=== PATIENT | male | born 1970 | race Caucasian/White ===

== ENCOUNTER → 2020-08-12 08:43 | Outpatient (BNVA) | payer OTHER, SELFPAY | PROVIDERS: Visit Provider Nurse Practitioner | DX: Z76.89 Persons encountering health services in other specified circumstances (principal) ==

== ENCOUNTER 2021-01-14 05:56 | Outpatient (REF) | payer OTHER, SELFPAY ==
[2021-01-14 07:05] LABS: MANUAL DIFF FLAG NO
[2021-01-14 07:12] LABS: Basophils Percent Auto 0.3 % (0-2); Eosinophils Absolute Auto 0.4 X10*3/uL (0.0-0.4); Eosinophils Percent Auto 4.6 % (0-4); Hematocrit 45.3 % (42-52); Hemoglobin 15.4 g/dl (14.0-18.0); Imm Gran Abs Auto 0.04 X10*3/uL (0.00-0.03); Imm Gran Pct Auto 0.4 % (0.0-0.4); Lymphocytes Absolute Auto 3.2 X10*3/uL (1.2-4.9); Lymphocytes Percent Auto 34.3 % (20-40); Mean Corpuscular Hemoglobin 30.3 pg (27.0-33.0); Mean Platelet Volume 10.5 fL (9.4-12.4); Monocytes Absolute Auto 0.7 X10*3/uL (0.1-1.2); Monocytes Percent Auto 7.6 % (2-11); Neutrophils Absolute Auto 4.9 X10*3/uL (2.0-8.3); Neutrophils Percent Auto 52.8 % (45-73); Platelet Count 229 X10*3/uL (160-400); Red Blood Count 5.09 X10*6/uL (4.60-5.80); Red Cell Distribution Width 12.1 % (11.0-16.0); White Blood Count 9.2 X10*3/uL (4.8-10.8)
[2021-01-14 07:27] LABS: Alanine Aminotransferase 26 U/L (0-40); Albumin Level 4.3 g/dL (3.5-5.0); Alkaline Phosphatase 67 U/L (39-117); Anion Gap 12 (12-20); Aspartate Amino Transferase 19 U/L (5-37); Bilirubin Total 0.7 mg/dL (0.0-1.0); Blood Urea Nitrogen 13 mg/dL (9-16); Carbon Dioxide 28 mmol/L (22-29); Chloride 105 mmol/L (96-108); Cholesterol 189 mg/dL; Estimated Glomerular Filt Rate > 60; Glucose Fasting 92 mg/dL (60-99); HDL Cholesterol 34 mg/dL; LDL Cholesterol Calculated 130 mg/dl; Potassium 4.3 mmol/L (3.3-5.1); Sodium 141 mmol/L (135-145); Total Protein 6.7 g/dL (6.5-8.0); Triglycerides 129 mg/dL
[2021-01-14 07:42] LABS: Glucose Urine UA NEG (NEG); Leukocyte Esterase Urine NEG (NEG); Nitrite Urine NEG (NEG); Specific Gravity - Urine 1.025 (1.005-1.025); Urine Blood NEG (NEG); Urine Ketones 5 MG/DL (NEG); Urine Protein NEG (NEG-TRACE)
[2021-01-14 07:46] LABS: Appearance Urine CLEAR; Color Urine YELLOW
[2021-01-14 07:47] LABS: Prostate Specific Antigen Scr 0.59 ng/mL (<0.05-4.0); TSH reflex Free T4 1.79 uIU/mL (0.32-4.0)
[2021-01-14 07:50] LABS: RBC Urine 0 /HPF (0); WBC Urine 0 /HPF (0-4)
== END 2021-01-14 05:57 | disposition home or self-care (01) ==
LOC: HO.LAB 05:56
PROVIDERS: Absent Provider Nurse Practitioner; PCP Nurse Practitioner Family; Visit Provider Nurse Practitioner Family
DX: Z00.00 Encounter for general adult medical examination without abnormal findings (principal); D12.6 Benign neoplasm of colon, unspecified; Z83.71 Family history of colonic polyps; Z12.5 Encounter for screening for malignant neoplasm of prostate
CPT/HCPCS: 36415; 80053; 80061; 81001; 84153; 84443; 85025

== ENCOUNTER 2021-01-19 06:29 | Day surgery (SDC) | payer OTHER, SELFPAY ==
[2021-01-14 09:02] VITALS: BMI 39.0
--- NOTE | 2021-01-16 08:22 | HO.ANESPROP2 ---
Documented by User: Vickie Kincaid 01/16/21 08:24 HPI - Anesthesia Eval Consult details Narrative: 50yo M for Colonoscopy PMFSH Active Problems Active Problems: All Active Problems (Updated 01/14/21 @ 09:03 by Jewels Romano) Morbid obesity (Acute) GERD (gastroesophageal reflux disease) (Acute) HTN (hypertension), benign (Acute) STEPH (obstructive sleep apnea) (Acute) Family history of colonic polyps (Acute) Tubular adenoma of colon (Acute) Physical exam (Acute) Past Medical History Medical History COVID-19 vaccine administered GERD (gastroesophageal reflux disease) HTN (hypertension), benign Sleep apnea Family History Family History Mother Stroke, Onset Age: 74 Maternal Grandfather Colon cancer Father HTN (hypertension) Hypercholesteremia Surgical History Surgical History History of esophagogastroduodenoscopy (EGD) Hx of colonoscopy Hx of tonsillectomy (~2001) Hx of varicose vein ligation and stripping Social History Social History Alcohol intake: current Alcohol intake frequency: holidays/special occasions only Alcohol type: beer Patient Tobacco Use Status: Never used Tobacco Use of substances other than those prescribed or required for medical reasons: No Have you been hit, kicked, punched, or otherwise hurt by someone within the past year? If so, by whom?: No Are you DNR?: No Advance Directives Information Provided: No Recently lost weight without trying: No Eating poorly because of decreased appetite: No Nutrition Risks: No Nutritional Risk Meds Allergies Allergy/AdvReac Type Severity Reaction Status Date / Time sulfamethoxazole Allergy Intermediate skin Verified 01/19/21 06:38 [From BACTRIM DS] sensitivity trimethoprim Allergy Intermediate skin Verified 01/19/21 06:38 [From BACTRIM DS] sensitivity Home Medications Medication Instructions Recorded Confirmed Last Taken Type omeprazole 20 mg capsule,delayed 20 mg PO .every 2 days PRN cap 12/08/20 01/14/21 Unknown History release phentermine 37.5 mg capsule 37.5 mg PO DAILY 12/08/20 12/08/20 Unknown History Exam Exam Date and Time: January 16, [id number] Height,Weight and Vital Signs: Height 5 ft 8 in Weight 116.573 kg Pertinent Lab Results Pertinent Lab Results: Laboratory Tests 01/14/21 01/14/21 06:10 06:10 WBC 9.2 Hgb 15.4 Hct 45.3 Plt Count 229 Sodium 141 Potassium 4.3 Chloride 105 Carbon Dioxide 28 BUN 13 Creatinine 0.81 Assessment and Plan Assessment Anesthesia Assessment: Chart Reviewed Documented by User: Jenny Valdez 01/19/21 07:34 PMFSH Past Medical History Medical History COVID-19 vaccine administered GERD (gastroesophageal reflux disease) HTN (hypertension), benign Sleep apnea Family History Family History Mother Stroke, Onset Age: 74 Maternal Grandfather Colon cancer Father HTN (hypertension) Hypercholesteremia Surgical History Surgical History History of esophagogastroduodenoscopy (EGD) Hx of colonoscopy Hx of tonsillectomy (~2001) Hx of varicose vein ligation and stripping Social History Social History Alcohol intake: current Alcohol intake frequency: holidays/special occasions only Alcohol type: beer Patient Tobacco Use Status: Never used Tobacco Use of substances other than those prescribed or required for medical reasons: No Have you been hit, kicked, punched, or otherwise hurt by someone within the past year? If so, by whom?: No Are you DNR?: No Advance Directives Information Provided: No Recently lost weight without trying: No Eating poorly because of decreased appetite: No Nutrition Risks: No Nutritional Risk Meds Allergies Allergy/AdvReac Type Severity Reaction Status Date / Time sulfamethoxazole Allergy Intermediate skin Verified 01/19/21 06:38 [From BACTRIM DS] sensitivity trimethoprim Allergy Intermediate skin Verified 01/19/21 06:38 [From BACTRIM DS] sensitivity Home Medications Medication Instructions Recorded Confirmed Last Taken Type omeprazole 20 mg capsule,delayed 20 mg PO .every 2 days PRN cap 12/08/20 01/14/21 Unknown History release phentermine 37.5 mg capsule 37.5 mg PO DAILY 12/08/20 12/08/20 Unknown History Exam Airway Mallampati Class: II TM Dist: >3cm Loose/Missing/Broken Teeth: No Heart: RRR Lungs: CTA Assessment and Plan Assessment Anesthesia Assessment: Anesthesia Plan Discussed and Chart Reviewed Final Anesthetic Review NPO: Yes ASA Class: III Final Preanesthetic Review: Meds/Allgs Chart Reviewed, Consent Obtained/Reviewed and Anes Risks/Benef Reviewed Patient Risk: Intermediate Procedure Risk: Low Anesthetic Plan Anesthetic Plan: MAC: Disposition: Standard PACU
[2021-01-19 06:38] VITALS: BP 143/79; PULSE 74; RESP 16; TEMP 36.9; O2SAT 97
[2021-01-19] MEDS: Lactated Ringers 1,000 ML 100 ML IVCONT (06:54)
--- NOTE | 2021-01-19 07:09 | W.PM.OPN ---
Operative Note Operative Note Date of Service: 01/19/21 Narrative: Pre-op diagnosis: Colon cancer screening Post-op diagnosis: other (Colon polyps, diverticulosis, hemorrhoids) Procedure: COLONOSCOPY TO CECUM WITH SUBMUCOSAL INJECTION AND SNARE POLYPECTOMY Consent: Indications for the procedure and potential complications of bleeding, perforation, reaction to medications and missed diagnosis were discussed with the patient and informed consent was obtained. Instrument: Olympus PCF H 190 L variable stiffness pediatric colonoscope Monitoring: Vital signs and clinical assessment, intermittent blood pressure monitoring, continuous EKG monitoring, Pulse oximetry and Carbon Dioxide monitoring were done throughout the procedure. Colon withdrawl time was 30 minutes. Procedure: The patient was placed in the left lateral decubitis position and pre-procedure medications were administered. After a digital rectal examination of the ano-rectum, the video colonoscope was inserted into the rectum and advanced through the colon to the cecum. The colonoscope was slowly withdrawn in a retrograde panoramic fashion and the colon mucosa was carefully examined including a retroflexed view of the rectum. Findings and interventions are described below. Procedure Difficulty: Without difficulty Findings: Terminal Ileum: Not evaluated Cecum: Normal Ascending Colon: A 1.5 to 2 cms flat polyp raised with 5 cc of Orise solution and removed with a hot snare and scattered diverticulosis. Transverse Colon: A 2 cm sessile polyp removed with a hot snare and scattered diverticulosis Descending Colon: Scattered diverticulosis Sigmoid Colon: Three 8-10 mm sessile polyps removed with a hot snare and moderate diverticulosis Rectum: Normal Ano-rectum: Moderate internal hemorrhoids Colon preparation: Good after some irrigation Impression and Post Procedure Diagnosis: Colonoscopy Findings: Five medium sized polyps removed Moderate diverticulosis seen in the entire colon Moderate hemorrhoids on retroflexed exam. Plan: Await pathology results Patient has an appointment on 02/02/21 in the [facility] with Jennifer Briggs NP. Repeat Colonoscopy interval based on path results - in 2-3 years if polyps are adenomatous and due to a history of adenomatous colon polyps. Above findings were reviewed with the patient and colon polyps and diverticulosis handouts were given in the discharge area Surgeon: Mitchel Ray MD Anesthesia: MAC (Maria E Grande CRNA) Was an Telephone Diaphragm Assembler used for this Procedure?: Yes Telephone Diaphragm Assembler: Daniel Barrow Estimated blood loss (mL): 0 Pathology: other (A- HEPATIC FLECTURE POLYP 0- RISE USED B- TRANSVERSE COLON POLYP C- SIGMOID POLYPS) Condition: stable Disposition: PACU
--- NOTE | 2021-01-19 07:09 | MHC.SHP ---
Pre-Procedural Eval Section A The patient is an INPATIENT: No The History & Physical has been completed within 30 days and I have reviewed it.: No Section B Chief Complaint: Hx of tubular adenoma Details of Present Illness: Colon cancer screening, history of colon polyps Relevant Family History (Specify if Yes): Yes Relevant Social History: None Present Medications: see Short Stay Collaborative assessment Medical History: Significant History (Morbid obesity STEPH Family history of colon polyps Elevated blood pressure. Obesity. Gastroesophageal reflux disease (GERD) Upper & Lower scoping 2017 [facility] - 5 year f/u. History of tubular adenoma) History of Previous Operations: Relevant previous surgery/procedure and date(s) (Hx of colonoscopy Hx of tonsillectomy (~2001)) Allergies: Allergies Allergy/AdvReac Type Severity Reaction Status Date / Time sulfamethoxazole Allergy Intermediate skin Verified 01/19/21 06:38 [From BACTRIM DS] sensitivity trimethoprim Allergy Intermediate skin Verified 01/19/21 06:38 [From BACTRIM DS] sensitivity Review of Systems Sugical H&P ROS: Negative: Constitution, Cardiovascular and Gastrointestinal and Yes, Specify: Respiratory (STEPH) Exam Surgical H&P Exam: Normal: Heart, Normal: Lungs, Normal: Extremities and Normal: Abdomen Plan Diagnosis/Plan: Unchanged I have reviewed the history and physical and performed a pertinent physical examination on my patient. No changes have occurred unless specified.
[2021-01-19 08:25] VITALS: BP 126/82; PULSE 76; RESP 12; TEMP 36.3; O2SAT 99
[2021-01-19 08:41] VITALS: BP 135/78; PULSE 69; RESP 16; TEMP 36.3; O2SAT 96
== END 2021-01-19 09:00 | disposition home or self-care (01) ==
PROVIDERS: PCP Nurse Practitioner Family; Visit Provider Internal Medicine Gastroenterology
PROC: 0DJD8ZZ Inspection of Lower Intestinal Tract, Via Natural or Artificial Opening Endoscopic (ICD-10-PCS; CPT 45378; principal; 2021-01-19 07:30)
DX: Z12.11 Encounter for screening for malignant neoplasm of colon (principal); Z86.010 Personal history of colon polyps; D12.3 Benign neoplasm of transverse colon; K63.5 Polyp of colon; K57.30 Diverticulosis of large intestine without perforation or abscess without bleeding; K64.8 Other hemorrhoids; K21.9 Gastro-esophageal reflux disease without esophagitis; G47.33 Obstructive sleep apnea (adult) (pediatric); Z99.89 Dependence on other enabling machines and devices; Z79.899 Other long term (current) drug therapy
CPT/HCPCS: 45385; 45381; 88305; J2250

== ENCOUNTER → 2021-02-02 14:59 | Outpatient (BNVA) | payer OTHER, SELFPAY | PROVIDERS: PCP Nurse Practitioner Family; Visit Provider Nurse Practitioner ==

== ENCOUNTER 2022-01-20 08:15 | Outpatient (REF) | payer OTHER, SELFPAY ==
--- NOTE | ~2022-01-20 | XR_ITS ---
EXAMINATION: XR KNEE, BILATERAL AP STANDING XR KNEE, LEFT CLINICAL INFORMATION: Knee pain. COMPARISON: None TECHNIQUE: AP bilateral knee standing 1 view. Left knee 2 views. FINDINGS: AP Bilateral Knee: There is mild reduction in medial and lateral compartment joint space of both knees. No visible acute fracture or dislocation seen. There are numerous varicose vessels seen along the medial aspect of the knee bilaterally. Left Knee: There is loss of patellofemoral compartment joint space with mild superior patellar spurring. No loose bodies or bony erosive changes seen. The soft tissues are normal. XR/XR knee LT 2V IMPRESSION: Mild degenerative changes medial and lateral compartment of both knees without any fracture or dislocation. There is bilateral medial knee varicose vein seen. Surgical amada in the left side likely from previous intervention. Degenerative arthritic changes patellofemoral compartment with superior patellar spurring.
--- NOTE | ~2022-01-20 | XR_ITS ---
EXAMINATION: XR KNEE, BILATERAL AP STANDING XR KNEE, LEFT CLINICAL INFORMATION: Knee pain. COMPARISON: None TECHNIQUE: AP bilateral knee standing 1 view. Left knee 2 views. FINDINGS: AP Bilateral Knee: There is mild reduction in medial and lateral compartment joint space of both knees. No visible acute fracture or dislocation seen. There are numerous varicose vessels seen along the medial aspect of the knee bilaterally. Left Knee: There is loss of patellofemoral compartment joint space with mild superior patellar spurring. No loose bodies or bony erosive changes seen. The soft tissues are normal. XR/XR knee standing BI IMPRESSION: Mild degenerative changes medial and lateral compartment of both knees without any fracture or dislocation. There is bilateral medial knee varicose vein seen. Surgical amada in the left side likely from previous intervention. Degenerative arthritic changes patellofemoral compartment with superior patellar spurring.
== END 2022-01-20 08:16 | disposition home or self-care (01) ==
LOC: HO.HOSX 08:15
PROVIDERS: Visit Provider Physician Assistant
DX: M25.562 Pain in left knee (principal); M25.561 Pain in right knee
CPT/HCPCS: 20610; 73560; 73565; J1040

== ENCOUNTER 2022-05-15 07:16 | Outpatient (REF) | payer OTHER, SELFPAY ==
[2022-05-15 08:20] LABS: Alanine Aminotransferase 31 U/L (0-40); Albumin Level 4.3 g/dL (3.5-5.0); Alkaline Phosphatase 69 U/L (39-117); Anion Gap 18 (12-20); Aspartate Amino Transferase 18 U/L (5-37); Bilirubin Total 0.5 mg/dL (0.0-1.0); Blood Urea Nitrogen 14 mg/dL (9-16); Calcium 9.1 mg/dL (8.4-10.2); Carbon Dioxide 25 mmol/L (22-29); Chloride 103 mmol/L (96-108); Cholesterol 188 mg/dL; Estimated Glomerular Filt Rate > 60; Glucose Fasting 105 mg/dL (60-99); HDL Cholesterol 37 mg/dL; LDL Cholesterol Calculated 123 mg/dl; Potassium 4.6 mmol/L (3.3-5.1); Sodium 141 mmol/L (135-145); Triglycerides 140 mg/dL
[2022-05-15 08:43] LABS: Prostate Specific Antigen Scr 0.52 ng/mL (<0.05-4.0); TSH reflex Free T4 2.06 uIU/mL (0.32-4.0)
[2022-05-15 09:43] LABS: Appearance Urine Clear; Color Urine Yellow; Glucose Urine UA Negative (Negative); Leukocyte Esterase Urine Negative (Negative); Nitrite Urine Negative (Negative); Specific Gravity - Urine 1.015 (1.005-1.025); Urine Blood Negative (Negative); Urine Ketones Negative (Negative); Urine Protein Negative (Neg-Trace)
== END 2022-05-15 07:17 | disposition home or self-care (01) ==
LOC: HO.LAB 07:16
PROVIDERS: PCP Nurse Practitioner Family; Visit Provider Nurse Practitioner Family
DX: Z00.00 Encounter for general adult medical examination without abnormal findings (principal); Z12.5 Encounter for screening for malignant neoplasm of prostate
CPT/HCPCS: 36415; 80053; 80061; 81003; 84153; 84443

== ENCOUNTER → 2022-11-02 10:07 | Outpatient (BNVA) | payer OTHER, SELFPAY | PROVIDERS: PCP Nurse Practitioner Family; Visit Provider Nurse Practitioner Family | DX: Z31.89 Encounter for other procreative management (principal) ==

== ENCOUNTER → 2022-11-18 09:55 | Outpatient (REF) | payer OTHER, SELFPAY | LOC: HO.SL 09:55 | PROVIDERS: PCP Nurse Practitioner Family; Visit Provider Nurse Practitioner Family | DX: G47.33 Obstructive sleep apnea (adult) (pediatric) (principal) | CPT/HCPCS: 95806 ==

== ENCOUNTER 2023-03-15 07:45 | Day surgery (SDC) | payer OTHER, SELFPAY ==
[2023-03-10 14:14] VITALS: BMI 42.6
--- NOTE | 2023-03-15 08:17 | MHC.SHP ---
Pre-Procedural Eval Section A Date of Service: 03/15/23 The patient is an INPATIENT: No The History & Physical has been completed within 30 days and I have reviewed it.: No Section B Chief Complaint: screening, hx of colon polyps Relevant Family History (Specify if Yes): Yes Relevant Social History: None Present Medications: see Short Stay Collaborative assessment Medical History: Significant History (GERD (gastroesophageal reflux disease) HTN (hypertension), benign Sleep apnea) History of Previous Operations: Relevant previous surgery/procedure and date(s) (History of esophagogastroduodenoscopy (EGD) Hx of colonoscopy Hx of tonsillectomy (~2001) Hx of varicose vein ligation and stripping) Allergies: Allergies Allergy/AdvReac Type Severity Reaction Status Date / Time sulfamethoxazole Allergy Intermediate skin Verified 11/02/22 10:17 [From BACTRIM DS] sensitivity trimethoprim Allergy Intermediate skin Verified 11/02/22 10:17 [From BACTRIM DS] sensitivity Review of Systems Sugical H&P ROS: Negative: Constitution, Cardiovascular, Respiratory and Gastrointestinal Exam Surgical H&P Exam: Normal: Heart, Normal: Lungs, Normal: Extremities and Normal: Abdomen Plan Diagnosis/Plan: Unchanged I have reviewed the history and physical and performed a pertinent physical examination on my patient. No changes have occurred unless specified. Time Spent With Patient Time: Total time managing care of this patient today ____ minutes.
[2023-03-15 08:22] VITALS: BMI 38.0
[2023-03-15 08:24] VITALS: BMI 38.0
[2023-03-15] MEDS: Lactated Ringers 1,000 ML 100 ML IVCONT (08:47)
--- NOTE | 2023-03-15 09:42 | P.CONAN_ITS ---
[facility] Active Problems Active Problems: All Active Problems (Updated 01/20/22 @ 10:01 by Bridger Jones PA-C) Patellofemoral arthralgia of left knee (Acute) Screening PSA (prostate specific antigen) (Acute) Upper abdominal pain (Acute) Abdominal bloating (Acute) Morbid obesity (Acute) GERD (gastroesophageal reflux disease) (Acute) STEPH (obstructive sleep apnea) (Acute) Family history of colonic polyps (Acute) Tubular adenoma of colon (Acute) Physical exam (Acute) Past Medical History Medical History COVID-19 vaccine administered GERD (gastroesophageal reflux disease) HTN (hypertension), benign Sleep apnea Family History Family History Mother Stroke, Onset Age: 74 Maternal Grandfather Colon cancer Father HTN (hypertension) Hypercholesteremia Family history of problems with anesthesia: No Surgical History Surgical History History of esophagogastroduodenoscopy (EGD) Hx of colonoscopy Hx of tonsillectomy (~2001) Hx of varicose vein ligation and stripping History of Problems with Anesthesia: No Social History Social History Housing: House Alcohol intake: current Alcohol intake frequency: holidays/special occasions only Alcohol type: beer Patient Tobacco Use Status: Never used Tobacco e-Cigarette/Vaping Use: Never Used Second Hand Smoke Exposure: No Use of substances other than those prescribed or required for medical reasons: No Are you DNR?: No Advance Directives: No Advance Directives Information Provided: Yes service: No Current occupational status: employed Current occupation: [employer] Current occupational exposures/hazards: No Cognitive needs: No Hearing needs: No Vision needs: No Meds Allergies Allergy/AdvReac Type Severity Reaction Status Date / Time sulfamethoxazole Allergy Intermediate skin Verified 11/02/22 10:17 [From BACTRIM DS] sensitivity trimethoprim Allergy Intermediate skin Verified 11/02/22 10:17 [From BACTRIM DS] sensitivity Active Medications: Current Medications Lactated Ringer's (Lr) 1,000 mls @ 100 mls/hr IVCONT .Q10H CADENCE Last Admin: 03/15/23 08:47 Dose: 100 mls/hr Ondansetron HCl (Ondansetron Hcl 4 Mg/2 Ml Vial) 4 mg IVPUSH ONCE PRN PRN Reason: Nausea and Vomiting Ondansetron HCl (Ondansetron Hcl 4 Mg/2 Ml Vial) 4 mg IVPUSH ONCE PRN PRN Reason: Nausea and Vomiting Home Medications Medication Instructions Recorded Confirmed Last Taken Type berberine-herbal comb no.18 capsule 1 cap PO DAILY 12/09/21 03/15/23 Unknown History lactobacillus combination no.9 4 4,000 mmu cells PO DAILY 12/09/21 03/15/23 Unknown History billion cell capsule (Adult 50 Plus Probiotic) simethicone 180 mg capsule 180 mg PO QID PRN flatus 12/09/21 03/15/23 Unknown History vitamin B complex (B 1 tab PO DAILY 12/09/21 03/15/23 Unknown History Complex-Vitamin B12 tablet) Exam Exam Date and Time: March 15, 2023 0942 Height,Weight and Vital Signs: Height 5 ft 8 in Weight 113.398 kg Airway Mallampati Class: III TM Dist: >3cm Neck ROM: Full Heart: rrr Lungs: clear Assessment and Plan Final Anesthetic Review Family History of Problems with Anesthesia: No History of Problems with Anesthesia: No NPO: Yes Final Preanesthetic Review: No Changes in Pt Med Stat, Meds/Allgs Chart Revi ewed, Consent Obtained/Reviewed and Anes Risks/Benef Reviewed Patient Risk: Intermediate Procedure Risk: Low Anesthetic Plan Anesthetic Plan: MAC: Disposition: Standard PACU
--- NOTE | 2023-03-15 09:48 | W.PM.OPN ---
Operative Note Operative Note Date of Service: 03/15/23 Narrative: COLONOSCOPY TILL CECUM WITH BIOPSIES AND SNARE POLYPECTOMY Pre-op diagnosis: Colon cancer screening, history of colon polyps Post-op diagnosis:? Colon polyps, diverticulosis, hemorrhoids Endoscopist:? Mitchel Ray MD Anesthesia:?MAC Consent: Indications for the procedure and potential complications of bleeding, perforation, reaction to medications and missed diagnosis were discussed with the patient and informed consent was obtained. Instrument: Olympus CF H 190 L variable stiffness adult colonoscope Monitoring: Vital signs and clinical assessment, intermittent blood pressure monitoring, continuous EKG monitoring, Pulse oximetry and Carbon Dioxide monitoring were done throughout the procedure. Please see anesthesia flowsheet. Colon withdrawl time was 18 minutes. Procedure: The patient was placed in the left lateral decubitis position and pre-procedure medications were administered. After a digital rectal examination of the ano-rectum, the video colonoscope was inserted into the rectum and advanced through the colon to the cecum. The colonoscope was slowly withdrawn in a retrograde panoramic fashion and the colon mucosa was carefully examined including a retroflexed view of the rectum. Findings and interventions are described below. Procedure Difficulty: Without difficulty Findings: Terminal Ileum: Not evaluated Cecum: Normal Ascending Colon: Moderate diverticulosis throughout the colon Transverse Colon: A 10-12 mm sessile polyp - removed with a hot snare. Moderate diverticulosis throughout the colon Descending Colon: Moderate diverticulosis throughout the colon Sigmoid Colon: A 12 - 15 mm sessile polyp - removed with a hot snare. A 3-4 mm diminutive appearing polyp - removed with a cold biopsy. Moderate diverticulosis, left > right Rectum: A 5-6 mm sessile polyp - removed with a cold biopsy Ano-rectum: Moderate internal hemorrhoids Colon preparation: Good Impression and Post Procedure Diagnosis: Colonoscopy Findings: Two small and two medium sized polyps removed Moderate diverticulosis seen in the entire colon Moderate hemorrhoids on retroflexed exam. Plan: Await pathology results Patient has an appointment on 03/29/23 in the GI Clinic with Jennifer Briggs NP. Repeat Colonoscopy interval based on path results - in 3-5 years if polyps are adenomatous and 10 years if polyps are hyperplastic. Above findings were reviewed with the patient and colon polyps and diverticulosis handouts were given in the discharge area
[2023-03-15 10:31] VITALS: BP 140/79; PULSE 71; RESP 16; TEMP 37.1; O2SAT 96
[2023-03-15 10:52] VITALS: BP 151/78; PULSE 69; RESP 18; TEMP 36.1; O2SAT 97
== END 2023-03-15 11:29 | disposition home or self-care (01) ==
PROVIDERS: PCP Internal Medicine; Visit Provider Internal Medicine Gastroenterology
PROC: 0DJD8ZZ Inspection of Lower Intestinal Tract, Via Natural or Artificial Opening Endoscopic (ICD-10-PCS; CPT 45378; principal; 2023-03-15 09:30)
DX: Z12.11 Encounter for screening for malignant neoplasm of colon (principal); Z86.010 Personal history of colon polyps; Z83.71 Family history of colonic polyps; K63.5 Polyp of colon; K62.1 Rectal polyp; K57.30 Diverticulosis of large intestine without perforation or abscess without bleeding; K64.8 Other hemorrhoids; K21.9 Gastro-esophageal reflux disease without esophagitis; I10 Essential (primary) hypertension; G47.33 Obstructive sleep apnea (adult) (pediatric); E66.01 Morbid (severe) obesity due to excess calories; Z79.899 Other long term (current) drug therapy; Z99.89 Dependence on other enabling machines and devices; Z88.2 Allergy status to sulfonamides
CPT/HCPCS: 45385; 45380; 88305

== ENCOUNTER → 2023-03-15 07:45 | Outpatient (BNV) | payer OTHER, SELFPAY | PROVIDERS: PCP Internal Medicine; Visit Provider Internal Medicine Gastroenterology | DX: Z12.11 Encounter for screening for malignant neoplasm of colon (principal); Z86.010 Personal history of colon polyps; K57.30 Diverticulosis of large intestine without perforation or abscess without bleeding; K64.8 Other hemorrhoids; D12.3 Benign neoplasm of transverse colon; D12.5 Benign neoplasm of sigmoid colon; D12.8 Benign neoplasm of rectum | CPT/HCPCS: 45380; 45385 ==

== ENCOUNTER 2023-03-22 05:58 | Outpatient (REF) | payer OTHER, SELFPAY ==
[2023-03-22 06:24] LABS: MANUAL DIFF FLAG NO
[2023-03-22 06:32] LABS: Basophils Percent Auto 0.5 % (0-2); Eosinophils Absolute Auto 0.3 X10*3/uL (0.0-0.4); Eosinophils Percent Auto 3.7 % (0-4); Eosinophils Percent Auto 3.8 % (0-4); Hematocrit 48.1 % (42.0-52.0); Hematocrit 48.3 % (42.0-52.0); Hemoglobin 16.5 g/dl (14.0-18.0); Hemoglobin 16.7 g/dl (14.0-18.0); Imm Gran Abs Auto 0.02 X10*3/uL (0.00-0.03); Imm Gran Pct Auto 0.2 % (0.0-0.4); Lymphocytes Absolute Auto 2.4 X10*3/uL (1.2-4.9); Lymphocytes Absolute Auto 2.6 X10*3/uL (1.2-4.9); Lymphocytes Percent Auto 29.2 % (20-40); Mean Corpuscular HGB Conc 34.3 g/dl (31.0-36.0); Mean Corpuscular HGB Conc 34.6 g/dl (31.0-36.0); Mean Corpuscular Hemoglobin 30.1 pg (27.0-33.0); Mean Corpuscular Hemoglobin 30.3 pg (27.0-33.0); Mean Corpuscular Volume 88.4 fL (80.0-98.0); Mean Platelet Volume 9.9 fL (9.4-12.4); Monocytes Absolute Auto 0.5 X10*3/uL (0.1-1.2); Monocytes Absolute Auto 0.6 X10*3/uL (0.1-1.2); Monocytes Percent Auto 6.2 % (2-11); Monocytes Percent Auto 6.8 % (2-11); Neutrophils Absolute Auto 5.3 x10*3/uL (2.0-8.3); Neutrophils Percent Auto 60.1 % (45-73); Neutrophils Percent Auto 60.8 % (45-73); Platelet Count 235 X10*3/uL (160-400); Red Blood Count 5.44 X10*6/uL (4.60-5.80); Red Blood Count 5.55 X10*6/uL (4.60-5.80); Red Cell Distribution Width 12.3 % (11.0-16.0); White Blood Count 8.7 X10*3/uL (4.8-10.8); White Blood Count 8.8 X10*3/uL (4.8-10.8)
[2023-03-22 06:45] LABS: Alanine Aminotransferase 26 U/L (0-40); Albumin Level 4.4 g/dL (3.5-5.0); Alkaline Phosphatase 68 U/L (39-117); Anion Gap 12 (12-20); Aspartate Amino Transferase 17 U/L (5-37); Bilirubin Total 0.6 mg/dL (0.0-1.0); Blood Urea Nitrogen 10 mg/dL (9-16); Calcium 9.7 mg/dL (8.4-10.2); Carbon Dioxide 27 mmol/L (22-29); Chloride 105 mmol/L (96-108); Cholesterol 188 mg/dL; Estimated Glomerular Filt Rate > 60; Glucose Random 102 mg/dL (60-115); HDL Cholesterol 36 mg/dL; Iron 162 mcg/dL (45-160); LDL Cholesterol Calculated 123 mg/dl; Percent Iron Saturation 63 % (15-50); Potassium 4.3 mmol/L (3.3-5.1); Sodium 140 mmol/L (135-145); Total Iron Binding Capacity 256 mcg/dL (228-428); Total Protein 7.4 g/dL (6.5-8.0); Triglycerides 148 mg/dL; Unsaturated Iron Binding 94 ug/dL
[2023-03-22 06:47] LABS: Alanine Aminotransferase 27 U/L (0-40); Albumin Level 4.4 g/dL (3.5-5.0); Alkaline Phosphatase 69 U/L (39-117); Anion Gap 13 (12-20); Aspartate Amino Transferase 18 U/L (5-37); Bilirubin Total 0.5 mg/dL (0.0-1.0); Blood Urea Nitrogen 10 mg/dL (9-16); Calcium 9.8 mg/dL (8.4-10.2); Carbon Dioxide 27 mmol/L (22-29); Chloride 104 mmol/L (96-108); Cholesterol 191 mg/dL; Estimated Glomerular Filt Rate > 60; Glucose Fasting 102 mg/dL (60-99); HDL Cholesterol 37 mg/dL; LDL Cholesterol Calculated 125 mg/dl; Potassium 4.4 mmol/L (3.3-5.1); Sodium 140 mmol/L (135-145); Total Protein 7.5 g/dL (6.5-8.0); Triglycerides 149 mg/dL
[2023-03-22 07:03] LABS: TSH reflex Free T4 2.35 uIU/mL (0.32-4.0)
[2023-03-22 07:05] LABS: Ferritin 911 ng/mL (20-250); TSH reflex Free T4 2.32 uIU/mL (0.32-4.0)
[2023-03-22 07:09] LABS: Prostate Specific Antigen 0.96 ng/mL (<0.05-4.0)
[2023-03-22 07:15] LABS: Vitamin B12 1335 pg/mL (200-900)
[2023-03-22 07:26] LABS: Insulin 22 uU/mL (2-29)
[2023-03-22 07:44] LABS: Appearance Urine Clear; Color Urine Yellow; Glucose Urine UA Negative (Negative); Leukocyte Esterase Urine Negative (Negative); Nitrite Urine Negative (Negative); PH 6.5 (5.0-9.0); Urine Blood Negative (Negative); Urine Ketones Negative (Negative); Urine Protein Negative (Neg-Trace)
[2023-03-24 00:29] LABS: Follicle Stimulating Hormone 5.6 mIU/mL (1.6-8.0); Lutenizing Hormone 2.6 mIU/mL (1.5-9.3); Triiodothyronine T3 Free 3.6 pg/mL (2.3-4.2)
[2023-03-24 01:04] LABS: DHEA Sulfate 142 mcg/dL (32-279)
[2023-03-24 17:24] LABS: Homocysteine 9.1 umol/L (<11.4)
[2023-03-27 05:43] LABS: Dihydrotestosterone 31 ng/dL (12-65)
[2023-03-27 10:54] LABS: Testosterone, Free 48.3 pg/mL (35.0-155.0); Testosterone, Total 383 ng/dL (250-1100)
[2023-03-28 13:44] LABS: Triiodothyronine T3 Reverse 16 ng/dL (8-25)
[2023-03-28 17:28] LABS: Progesterone <0.1 ng/mL (< OR = 0.2)
[2023-03-29 04:58] LABS: Lipoprotein A 31 nmol/L (<75)
[2023-03-29 11:39] LABS: Apolipoprotein A1 146 mg/dL (>=115); Apolipoprotein B 112 mg/dL (<90)
[2023-04-01 21:38] LABS: Estradiol Ultra Sensitive 28 pg/mL (< OR = 29)
== END 2023-03-22 05:59 | disposition home or self-care (01) ==
LOC: HO.LAB 05:58
PROVIDERS: Absent Provider Nurse Practitioner Adult Health; PCP Nurse Practitioner Family; Visit Provider Nurse Practitioner Family
DX: E66.01 Morbid (severe) obesity due to excess calories (principal); E29.1 Testicular hypofunction; E53.9 Vitamin B deficiency, unspecified; Z12.5 Encounter for screening for malignant neoplasm of prostate; E55.9 Vitamin D deficiency, unspecified; R53.83 Other fatigue; D64.9 Anemia, unspecified; E78.5 Hyperlipidemia, unspecified
CPT/HCPCS: 36415; 80053; 80061; 81003; 82172; 82306; 82607; 82627; 82642; 82670; 82728; 83001; 83002; 83090; 83525; 83540; 83695; 84144; 84153; 84402; 84403; 84443; 84481; 84482; 85025

== ENCOUNTER 2023-03-29 10:34 | Outpatient (AMB) | payer OTHER, SELFPAY ==
[2023-03-29 10:41] VITALS: BP 160/89; PULSE 77; BMI 38.3
--- NOTE | 2023-03-29 10:41 | A.OFFVIS_ITS ---
Intake Vital Signs 03/29/23 10:41 03/29/23 10:54 Height 5 ft 8 in Weight 251 lb 12.286 oz BMI 38.3 BP 160/89 H 144/84 H Blood Pressure Location Lt brachial Lt brachial Position Sitting Sitting Pulse 77 Comment Manual BP check Intake Visit Reasons: S/p colon Cory Intake Note: Patient presents to in office visit today in follow up of colonoscopy . CC: Patient denies having any GI symptoms today. 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 On phentermine for weight loss and see the weight loss doctor but says it is very expensive it caused him? 200 dollars per visit (2) GERD (gastroesophageal reflux disease): ?Code(s): K21.9 - Gastro-esophageal reflux disease without esophagitis ?Plan - ALCIDES Regalado-C: Tolerated procedure well, but having ongoing bloating (before procedure). Worse with bread adn pizza (?fat). Unsure and will think about fat content of meats - he eats a lot of meat and had trouble with brisket. Mother GB disease , we discussed an ultrasound be wants to wait on that because he is very busy at work.? Because he feels he may have some sort of gluten sensitivity I will order celiac testing but I did explain to him that not everyone is allergic to gluten so was simply developed a little pancreatic insufficiency as we age in do not produce the enzymes to digest it well which can cause gas and bloating.? This will help us she is out the cause.? Also it could be fatty or cuts of me that her bothering him which could relate to gallbladder disease. In the meantime I will give him some simethicone to help with past the gas pattern encourage him to take it with each meal. He is quite agreeable to the 2-3 year follow-up for his colonoscopy screening and understands that he should never go more than 5 years without a colonoscopy so that he will not develop colon cancer.? He was educated that the flat nature of the polyps is why he needs an earlier recall because sometimes it is difficult to assess that you gotten all the material from the edges of these lesions. He is agreeable to a 3 month follow-up.? He continues on his omeprazole 20 mg once a day and I have refilled it for him. ? ? ? Medications:?Changed: ? From: omeprazole 20 mg? PO DAILY A sonam Reflux ? ? ? To: omeprazole 20 mg? PO DAILY 3 0 days 30 caps 6RF Acid Reflux ? ? (3) Tubular adenoma of colon: ?Comment: scope 2 ta'S sesslie repeat 2-3 years ?Code(s): D12.6 - Benign neoplasm of colon, unspecified (4) Family history of colonic polyps: ?Code(s): Z83.71 - Family history of colonic polyps (5) Upper abdominal pain: ?Code(s): R10.10 - Upper abdominal pain, unspecified ? ? ? Orders:?Orders: ? Gliadin Ab Panel 02/02/21 ? ? ? Transglutaminase I gA 02/02/21 ? ? ? Transglutaminase A b IgG 02/02/21 ? ? (6) Abdominal bloating: ?Code(s): R14.0 - Abdominal distension (gaseous) ? ? ? Orders:?Orders: ? Gliadin Ab Panel 02/02/21 ? ? ? Transglutaminase I gA 02/02/21 ? ? ? Transglutaminase A b IgG 02/02/21 ? ? LABS: not obtained COLONOSCOPY 03/15/23 Findings: Terminal Ileum: Not evaluated Cecum:? Normal Ascending Colon:? Moderate diverticulosis throughout the colon Transverse Colon:? A 10-12 mm sessile polyp - removed with a hot snare. Moderate diverticulosis throughout the colon Descending Colon:? Moderate diverticulosis throughout the colon Sigmoid Colon:? A 12 - 15 mm sessile polyp - removed with a hot snare. A 3-4 mm diminutive appearing polyp - removed with a cold biopsy. Moderate diverticulosis, left > right Rectum:? A 5-6 mm sessile polyp - removed with a cold biopsy Ano-rectum:? Moderate internal hemorrhoids Colon preparation:? Good? Impression and Post Procedure Diagnosis: Colonoscopy Findings: Two small and two medium sized polyps removed Moderate diverticulosis seen in the entire colon Moderate hemorrhoids on retroflexed exam. Plan: Await pathology results Patient has an appointment on 03/29/23 in the GI Clinic with Jennifer Briggs NP. Repeat Colonoscopy interval based on path results - in 3-5 years if polyps are adenomatous and 10 years if polyps are hyperplastic. Received: 03/15/23 Diagnosis A. Colon, sigmoid, polypectomies (2): Hyperplastic mucosal polyps. B. Colon, transverse, polypectomy: Colonic mucosa with prominent lymphoid aggregate. C. Rectum, polypectomy: Hyperplastic mucosal polyp. TODAY'S VISIT The only problem he was having was his sciatia, and laying on his side for the procedure did not help! he is having burning in his legs now. The procedure needs to be repeated in 5 years due to his history of tubular adenoma and family history of colon polyps. The procedure was well tolerated. The results were explained and the patient is agreeable to the follow-up interval as stated. The bowel pattern has returned to normal. Education was provided to tell any 1st degree relatives about their findings to be sure that they are screened by age 45. Educated that they will be put on a recall list when it is time for their repeat scope but should they move out of state or away from the hospital they will need to remember along with their primary to repeat the procedure in a timely fashion to avoid any adverse complications. [facility] Medical History (Updated 03/29/23 @ 10:51 by VERONICA Regalado) COVID-19 vaccine administered GERD (gastroesophageal reflux disease) HTN (hypertension), benign Sleep apnea Tubular adenoma of colon Surgical History History of esophagogastroduodenoscopy (EGD) Hx of colonoscopy Hx of tonsillectomy (~2001) Hx of varicose vein ligation and stripping Family History Mother Stroke, Onset Age: 74 Maternal Grandfather Colon cancer Father HTN (hypertension) Hypercholesteremia Social History Housing: House Alcohol intake: current Alcohol intake frequency: holidays/special occasions only Alcohol type: beer Patient Tobacco Use Status: Never used Tobacco e-Cigarette/Vaping Use: Never Used Second Hand Smoke Exposure: No service: No Current occupational status: employed Current occupation: [employer] Current occupational exposures/hazards: No Cognitive needs: No Hearing needs: No Vision needs: No Review of Systems Const Denies fatigue, Denies fever(s), Denies night sweats, Denies poor appetite and Denies weight loss ENT Reports Normal hearing present, Denies dental pain, Denies dysphagia, Denies hearing loss, Denies mouth pain, Denies odynophagia, Denies throat swelling, Denies tongue swelling and Reports other (Dentition adequate) Card Reports no additional complaints Resp Reports no additional complaints GI Denies abdominal pain, Denies melena, Denies bloating, Denies hematochezia, Denies constipation, Denies GI cramping, Denies dysphagia, Denies excessive flatus, Denies early satiety, Denies heartburn, Denies diarrhea, Denies nausea, Denies odynophagia, Denies vomiting and Denies hematemesis Musc Reports back pain and Reports radiating pain into limb Skin/Breast Denies pruritus, Denies lesions, Denies rash and Denies jaundice Neuro Reports Normal hearing present and Denies Abnormal speech present Endo Denies fatigue Aller/Immun Denies throat swelling and Denies tongue swelling Physical Exam Vital Signs: Last Vital Signs Pulse 77 03/29/23 10:41 BP 144/84 H 03/29/23 10:54 BMI result Body Mass Index 38.3 Const General: cooperative, no acute distress, well developed and well groomed Nutritional Appearance: well nourished and obese Orientation/consciousness: oriented to person, oriented to place and oriented to time Limitations: No language barrier HEENT Head: Yes normocephalic and Yes atraumatic Eyes General: appearance normal, both eyes and all related structures Pupils: Equal, round and reactive pupils present Neck Neck: Yes normal visual inspection and Yes no lymphadenopathy Thyroid: Thyroid normal Resp Effort & Inspection: normal respiratory effort and able to speak in complete sentences Auscultation: clear to auscultation bilaterally Cardio Rate: regular rate Rhythm: regular rhythm Heart sounds: Normal, physiologic split S2 sound present Peripheral pulses: radial pulses present and posterior tibial pulses present GI Inspection: No distended, No Abdominal panniculus present and Yes obesity Palpation (GI): Soft to palpation, nontender, no guarding, not rigid and No hepatosplenomegaly present Percussion: Yes normal to percussion Auscultation: normal bowel sounds Rectal Exam - Male: Yes deferred Skin General skin exam: no rashes or lesions noted, turgor normal, skin not dry, no jaundice, No spider nevi and no striae Rashes: no rashes Nails: normal Neuro General: oriented to person, oriented to place and oriented to time Cranial nerves: Yes Equal, round and reactive pupils present and Yes Normal hearing present Speech: No Abnormal speech present Extrem General: Yes normal to inspection, No clubbing, No cyanosis and No edema Psych Appearance: grossly normal and well kempt Mental Status: mental status grossly normal Speech and movement: Normal speech and movement present Affect: normal affect Attitude: cooperative Thought process: Normal thought process present and not confabulating Thought content: Normal thought content present Insight: Fair insight present (Psych) Judgement: Fair judgement present (Psych) Results Reviewed Results Reviewed: LABS: not obtained COLONOSCOPY 03/15/23 Findings: Terminal Ileum: Not evaluated Cecum:? Normal Ascending Colon:? Moderate diverticulosis throughout the colon Transverse Colon:? A 10-12 mm sessile polyp - removed with a hot snare. Moderate diverticulosis throughout the colon Descending Colon:? Moderate diverticulosis throughout the colon Sigmoid Colon:? A 12 - 15 mm sessile polyp - removed with a hot snare. A 3-4 mm diminutive appearing polyp - removed with a cold biopsy. Moderate diverticulosis, left > right Rectum:? A 5-6 mm sessile polyp - removed with a cold biopsy Ano-rectum:? Moderate internal hemorrhoids Colon preparation:? Good? Impression and Post Procedure Diagnosis: Colonoscopy Findings: Two small and two medium sized polyps removed Moderate diverticulosis seen in the entire colon Moderate hemorrhoids on retroflexed exam. Plan: Await pathology results Patient has an appointment on 03/29/23 in the GI Clinic with Jennifer Briggs NP. Repeat Colonoscopy interval based on path results - in 3-5 years if polyps are adenomatous and 10 years if polyps are hyperplastic. Received: 03/15/23 Diagnosis A. Colon, sigmoid, polypectomies (2): Hyperplastic mucosal polyps. B. Colon, transverse, polypectomy: Colonic mucosa with prominent lymphoid aggregate. C. Rectum, polypectomy: Hyperplastic mucosal polyp. Assessment & Plan Assessment & Plan (1) Tubular adenoma of colon: Comment: 03/2023= HYPERPLASTIC POLYPS ONLY REPEAT IN 5 YEARS; scope 2 ta'S sesslie repeat 2-3 years Code(s): D12.6 - Benign neoplasm of colon, unspecified Plan: The only problem he was having was his sciatia, and laying on his side for the procedure did not help! he is having burning in his legs now. The procedure needs to be repeated in 5 years due to his history of tubular adenoma and family history of colon polyps. The procedure was well tolerated. The results were explained and the patient is agreeable to the follow-up interval as stated. The bowel pattern has returned to normal. Education was provided to tell any 1st degree relatives about their findings to be sure that they are screened by age 45. Educated that they will be put on a recall list when it is time for their repeat scope but should they move out of state or away from the hospital they will need to remember along with their primary to repeat the procedure in a timely fashion to avoid any adverse complications. (2) Family history of colonic polyps: Code(s): Z83.71 - Family history of colonic polyps Coding Level of Care Code Est Pt Level 3 (83803) Diagnoses Tubular adenoma of colon D12.6 Family history of colonic polyps Z83.71
[2023-03-29 10:54] VITALS: BP 144/84
== END 2023-03-29 11:05 | disposition home or self-care (01) ==
PROVIDERS: PCP Nurse Practitioner Family; Visit Provider Nurse Practitioner
DX: D12.6 Benign neoplasm of colon, unspecified (principal); Z83.71 Family history of colonic polyps
CPT/HCPCS: 99213

== ENCOUNTER → 2023-03-29 10:34 | Outpatient (BNVA) | payer OTHER, SELFPAY | PROVIDERS: PCP Nurse Practitioner Family; Visit Provider Nurse Practitioner ==

== ENCOUNTER 2023-09-05 06:04 | Outpatient (REF) | payer OTHER, SELFPAY ==
[2023-09-05 06:33] LABS: MANUAL DIFF FLAG NO
[2023-09-05 07:06] LABS: Basophils Absolute Auto 0.1 X10*3/uL (0.0-0.2); Basophils Percent Auto 0.5 % (0-2); Eosinophils Absolute Auto 0.3 X10*3/uL (0.0-0.4); Eosinophils Percent Auto 3.5 % (0-4); Hematocrit 50.4 % (42.0-52.0); Hemoglobin 17.5 g/dl (14.0-18.0); Imm Gran Abs Auto 0.04 X10*3/uL (0.00-0.03); Imm Gran Pct Auto 0.4 % (0.0-0.4); Lymphocytes Absolute Auto 2.9 X10*3/uL (1.2-4.9); Lymphocytes Percent Auto 30.2 % (20-40); Mean Corpuscular HGB Conc 34.7 g/dl (31.0-36.0); Mean Corpuscular Hemoglobin 30.6 pg (27.0-33.0); Mean Corpuscular Volume 88.1 fL (80.0-98.0); Mean Platelet Volume 10.5 fL (9.4-12.4); Monocytes Absolute Auto 0.8 X10*3/uL (0.1-1.2); Monocytes Percent Auto 8.3 % (2-11); Neutrophils Absolute Auto 5.4 x10*3/uL (2.0-8.3); Neutrophils Percent Auto 57.1 % (45-73); Platelet Count 228 X10*3/uL (160-400); Red Blood Count 5.72 X10*6/uL (4.60-5.80); Red Cell Distribution Width 11.9 % (11.0-16.0); White Blood Count 9.5 X10*3/uL (4.8-10.8)
[2023-09-05 07:30] LABS: Alanine Aminotransferase 21 U/L (0-40); Albumin Level 4.2 g/dL (3.5-5.0); Alkaline Phosphatase 59 U/L (39-117); Anion Gap 13 (12-20); Aspartate Amino Transferase 14 U/L (5-37); Bilirubin Total 0.6 mg/dL (0.0-1.0); Blood Urea Nitrogen 16 mg/dL (9-16); Calcium 8.9 mg/dL (8.4-10.2); Carbon Dioxide 25 mmol/L (22-29); Chloride 106 mmol/L (96-108); Cholesterol 199 mg/dL (<200); Estimated Glomerular Filt Rate > 60; Glucose Fasting 109 mg/dL (60-99); HDL Cholesterol 29 mg/dL (>40); Iron 141 mcg/dL (45-160); LDL Cholesterol Calculated 151 mg/dL (<100); Percent Iron Saturation 57 % (15-50); Sodium 140 mmol/L (135-145); Total Iron Binding Capacity 246 mcg/dL (228-428); Total Protein 7.1 g/dL (6.5-8.0); Triglycerides 95 mg/dL (<150); Unsaturated Iron Binding 105 ug/dL
[2023-09-05 07:38] LABS: Prostate Specific Antigen Scr 0.84 ng/mL (<0.05-4.0)
[2023-09-05 07:39] LABS: Prostate Specific Antigen 0.84 ng/mL (<0.05-4.0)
[2023-09-05 07:44] LABS: Appearance Urine Clear; Color Urine Yellow; Glucose Urine UA Negative (Negative); Leukocyte Esterase Urine Negative (Negative); Nitrite Urine Negative (Negative); PH 5.5 (5.0-9.0); Specific Gravity - Urine 1.025 (1.005-1.025); Urine Blood Negative (Negative); Urine Ketones Negative (Negative); Urine Protein Negative (Neg-Trace)
[2023-09-05 07:47] LABS: Ferritin 788 ng/mL (20-250); TSH reflex Free T4 1.92 uIU/mL (0.32-4.0)
[2023-09-06 16:44] LABS: Follicle Stimulating Hormone <0.7 mIU/mL (1.4-12.8); Lutenizing Hormone <0.2 mIU/mL (1.5-9.3)
[2023-09-09 22:53] LABS: Estradiol Ultra Sensitive 61 pg/mL (< OR = 29)
[2023-09-12 14:29] LABS: Progesterone <0.1 ng/mL (< OR = 0.2)
== END 2023-09-05 06:05 | disposition home or self-care (01) ==
LOC: HO.LAB 06:04
PROVIDERS: Absent Provider Nurse Practitioner Adult Health; PCP Nurse Practitioner Family; Visit Provider Nurse Practitioner Family
DX: Z12.5 Encounter for screening for malignant neoplasm of prostate (principal); I10 Essential (primary) hypertension; E83.119 Hemochromatosis, unspecified; R79.89 Other specified abnormal findings of blood chemistry; E53.9 Vitamin B deficiency, unspecified; R70.0 Elevated erythrocyte sedimentation rate
CPT/HCPCS: 36415; 80053; 80061; 81003; 82670; 82728; 83001; 83002; 83540; 84144; 84153; 84443; 85025

== ENCOUNTER 2023-12-21 15:17 | Outpatient (AMB) | payer OTHER, SELFPAY ==
--- NOTE | 2023-12-21 15:46 | MHC.PC.OV ---
Vital Signs 12/21/23 15:50 Height 5 ft 8 in Weight 255 lb BMI 38.8 BP 128/78 Blood Pressure Location Rt brachial Position Sitting Pulse 62 Pulse Source Pulse Oximeter Pulse Oximetry (%) 97 Oxygen Delivery Method Room Air Intake Visit Reasons: Annual PE Intake Note: Patient here for physical exam. Colon: Allergies sulfamethoxazole [From BACTRIM DS] Allergy (Intermediate, Verified 12/21/23 17:38) skin sensitivity trimethoprim [From BACTRIM DS] Allergy (Intermediate, Verified 12/21/23 17:38) skin sensitivity Medication List - Last Reconciled 12/21/23 by BETSEY Ramirez-ROCHELLE berberine-herbal comb no.18 1 cap PO DAILY cyclobenzaprine 5 mg PO TID PRN lactobacillus combination no.9 (Adult 50 Plus Probiotic) 4,000 mmu cells PO DAILY losartan 25 mg PO DAILY omeprazole 20 mg PO DAILY 30 days semaglutide 0.25 mg subcut QWEEK vitamin B complex (B Complex-Vitamin B12 tablet) 1 tab PO DAILY Tobacco use date assessed: 12/21/23 Dental Screening Dental Screen Date: 12/21/23 Did you have a dental visit in the last 12 months?: Yes Did you have a dental problem in the last 6 months where you did not have access to dental care?: No Was dental information given to patient?: Patient has dentist HPI Annual PE HPI Details Pt is here for a PE. Labs have already been ordered, encouraged pt to have these drawn. Colon screen is up to date. PSA is up to date. Denies dribbling with urination, weak stream, and frequent nocturia. PFSH Medical History COVID-19 vaccine administered GERD (gastroesophageal reflux disease) Sleep apnea Tubular adenoma of colon HTN (hypertension), benign Surgical History History of esophagogastroduodenoscopy (EGD) Hx of varicose vein ligation and stripping Hx of tonsillectomy (~2001) Hx of colonoscopy Family History Mother Stroke, Onset Age: 74 Maternal Grandfather Colon cancer Father HTN (hypertension) Hypercholesteremia Social History Housing: House Alcohol intake: current Alcohol intake frequency: holidays/special occasions only Alcohol type: beer Patient Tobacco Use Status: Never used Tobacco e-Cigarette/Vaping Use: Never Used Second Hand Smoke Exposure: No service: No Current occupational status: employed Current occupation: [employer] Current occupational exposures/hazards: No Cognitive needs: No Hearing needs: No Vision needs: No Questionnaire PHQ-9 Over the last 2 weeks, how often have you been bothered by any of the following problems? 1. Little interest or pleasure in doing things: several days 2. Feeling down, depressed, or hopeless: not at all 3. Trouble falling or staying asleep, or sleeping too much: more than half the days 4. Feeling tired or having little energy: more than half the days 5. Poor appetite or overeating: several days 6. Feeling bad about yourself - or that you are a failure or have let yourself or your family down: not at all 7. Trouble concentrating on things, such as reading the newspaper or watching television: more than half the days 8. Moving or speaking so slowly that other people could have noticed. Or the opposite - being so fidgety or restless that you have been moving around a lot more than usual: not at all 9. Thoughts that you would be better off or of hurting yourself in some way: not at all Total score: 8 Depression Screening Interpretation: Negative Depression Screening Done: Yes [id number] - PHQ-9 Billing: Yes Source: Developed by Drs. Zachary Brand, Sarah Murray, Negrito Skinner and colleagues, with an educational nicci from [facility]. Thrive Questionnaire Date Thrive assessed: 12/21/23 I am a: Patient What is your living situation today?: I have a steady place to live Within the past 12 months, did the food you bought not last and you didn't have the money to get more?: Never true Within the past 12 months, did you worry whether your food would run out before you got money to buy more?: Never true Do you have trouble paying for medicines?: No Do you have trouble getting transportation to medical appointments?: No Do you have trouble paying your heating and electricity bill?: No Do you have trouble taking care of your child, family member or friend?: No Do you have trouble with day-to-day activities such as bathing, preparing meals, shopping, managing finances, etc.?: No Are you currently unemployed and looking for a job?: No Are you interested in more education?: No Currently or been in a relationship where the following occur: I choose not to answer this question THRIVE Score: 0 MELITA-7 AMB Questionnaire MELITA-7 Date MELITA - 7 assessed: 12/09/21 Feeling nervous, anxious, or on edge: 2 = More than half the days Not being able to stop or control worryin = More than half the days Worrying too much about different things: 2 = More than half the days Trouble relaxin = Several days Being so restless that it is hard to sit still: 1 = Several days Becoming easily annoyed or irritable: 1 = Several days Feeling afraid as if something awful might happen: 0 = Not at all Total MELITA-7 score (0-4 normal; 5-9 mild; 10-14 moderate; 15-21 severe): 9 Source: Developed by Drs. Zachary Brand, Sarah Murray, Negrito Skinner and colleagues, with an educational nicci from [facility]. MELITA-7 Assessment Billing MELITA-7 Assessment Tool: MELITA-7 Assessment 10372 Review of Systems Const Denies chills and Denies fever(s) Eyes Denies blurry vision ENT Denies vertigo, Denies dizziness and Denies sore throat Card Denies chest pain at rest, Denies chest pain with activity, Denies diaphoresis, Denies dyspnea and Denies dyspnea on exertion Resp Denies cough, Denies dyspnea, Denies dyspnea on exertion and Denies wheezing GI Denies abdominal pain, Denies melena, Denies hematochezia, Denies constipation, Denies diarrhea and Denies loose stools Denies hematuria Musc Denies numbness and Denies tingling Skin/Breast Denies lesions Neuro Denies vertigo, Denies dizziness, Denies numbness and Denies tingling Psych Denies anxiety, Denies depression, Denies homicidal ideation, Denies suicidal ideation and Denies other (substance abuse) Aller/Immun Denies wheezing Physical exam (Primary Care) Vital Signs: Last Vital Signs Pulse 62 12/21/23 15:50 BP 128/78 12/21/23 15:50 Pulse Ox 97 12/21/23 15:50 Oxygen Delivery Method Room Air 12/21/23 15:50 BMI result Body Mass Index 38.8 Tobacco/Smoking Status: Tobacco use Status Tobacco use date assessed 12/21/23 12/21/23 15:53 Patient Tobacco Use Status Never used Tobacco 12/21/23 15:47 Tobacco use type 12/21/23 15:53 e-Cigarette/Vaping Use Never Used 12/21/23 15:47 PHQ-9: PHQ-9 Score PHQ-9: Total score 8 12/21/23 16:14 Depression Screening Interpretation: Negative Thrive Assessment: Date of Thrive Assessment Date Thrive assessed 12/21/23 12/21/23 16:14 Currently or been in a relationship where the following occur: I choose not to answer this question Const General: cooperative Nutritional Appearance: obese Orientation/consciousness: patient oriented x3 HENMT Head: Yes normal to inspection, Yes normocephalic and Yes atraumatic Ears: TM's normal bilaterally Eyes General: appearance normal, both eyes and all related structures Alignment and Position: alignment normal and position normal Neck Neck: Yes normal visual inspection and Yes no lymphadenopathy Thyroid: Thyroid normal Resp Effort & Inspection: normal respiratory effort Auscultation: clear to auscultation bilaterally Cardio Rate: regular rate Rhythm: regular rhythm Heart sounds: S1 normal heart sound present, S2 normal heart sound present and no murmurs GI Palpation (GI): Soft to palpation and nontender Auscultation: normal bowel sounds Male General Exam: Yes normal external exam Penis: normal penis Scrotum: scrotum normal, testes descended bilaterally and no inguinal hernias Testes: no testicular mass Skin Rashes: no rashes Neuro General: patient oriented x3, moves all extremities, no focal motor deficits and deep tendon reflexes 2+ bilaterally Romberg Test: Negative Extrem Other: varicose veins noted to medial aspect of BLE (right>left), no tenderness with palpation, trace edema bilat Psych Appearance: grossly normal Mental Status: mental status grossly normal Speech and movement: Normal speech and movement present Affect: normal affect Attitude: cooperative Thought process: Normal thought process present Thought content: Normal thought content present Insight: Good insight present (Psych) Judgement: Good judgement present (Psych) Assessment and Plan Assessment & Plan (1) Physical exam: Code(s): Z00.00 - Encounter for general adult medical examination without abnormal findings Plan The patient agreed to the use of a medical office assistant instructor for this encounter. Scribed for SANDHYA Mendez by Carlene Ware medical office assistant instructor, on 12/21/2023 at 16:20 EST. Coding Level of Care Code Est Pt Prev Care 40-64y(77516) Diagnoses Physical exam Z00.00 Additional Codes MELITA-7 Assessment Billing - MELITA-7 Assessment Tool: MELITA-7 Assessment 84235 ([id number])
[2023-12-21 15:50] VITALS: BP 128/78; PULSE 62; O2SAT 97; BMI 38.8
== END 2023-12-21 16:32 | disposition home or self-care (01) ==
PROVIDERS: PCP Nurse Practitioner Family; Visit Provider Nurse Practitioner Family
DX: Z00.00 Encounter for general adult medical examination without abnormal findings (principal)
CPT/HCPCS: 99396

== ENCOUNTER 2024-03-22 09:34 | Outpatient (AMB) | payer OTHER, SELFPAY ==
--- NOTE | 2024-03-22 09:37 | A.OFFVIS_ITS ---
Vital Signs 03/22/24 09:44 Height 5 ft 8 in Weight 255 lb BMI 38.8 Intake Visit Reasons: Inj-left knee injection-last injection 01/20/22 Intake Note: Patient reports bilateral knee pain, states his right knee pain presented in December after walking 4 miles in [place]. His pain is located at the medial aspect of both knees. His last injection to the left knee provided him with relief for about 2 years. He is requesting to discuss bilateral knee injections. Find some relief with advil. Allergies sulfamethoxazole [From BACTRIM DS] Allergy (Intermediate, Verified 03/22/24 09:46) skin sensitivity trimethoprim [From BACTRIM DS] Allergy (Intermediate, Verified 03/22/24 09:46) skin sensitivity HPI HPI Inj-left knee injection-last injection 01/20/22: Details: 53-year-old male who returns to the office today for a follow-up of left knee pain. He reports his pain started after walking 4 mile in [place] in December. He currently states he has pain at the medial aspect of his bilateral knees. He finds some relief with Advil. He had his last left knee injection on 01/20/22 which provided him relief for about 2 years. He would like to have bilateral knee injections today. [facility] Medical History COVID-19 vaccine administered GERD (gastroesophageal reflux disease) Sleep apnea Tubular adenoma of colon HTN (hypertension), benign Surgical History History of esophagogastroduodenoscopy (EGD) Hx of varicose vein ligation and stripping Hx of tonsillectomy (~2001) Hx of colonoscopy Family History Mother Stroke, Onset Age: 74 Maternal Grandfather Colon cancer Father HTN (hypertension) Hypercholesteremia Social History Housing: House Alcohol intake: current Alcohol intake frequency: holidays/special occasions only Alcohol type: beer Patient Tobacco Use Status: Never used Tobacco e-Cigarette/Vaping Use: Never Used Second Hand Smoke Exposure: No service: No Current occupational status: employed Current occupation: [employer] Current occupational exposures/hazards: No Cognitive needs: No Hearing needs: No Vision needs: No Review of Systems Const All systems reviewed & are unremarkable except as noted in HPI and below Physical Exam Vital Signs: BMI result Body Mass Index 38.8 Extrem Other: Bilateral knee: Skin intact, no erythema or joint effusion. Tenderness along the medial joint line. Full ROM with crepitus. Negative Manuel?s. No ligamentous laxity. NVI. ? Office Procedures Joint Injection/Aspiration Joint Injection/Aspiration Primary Site: right knee Secondary Site: left knee Prep: site was prepped using aseptic technique, ethochloride spray was applied and injection warnings given Injected: 80 mg of, DepoMedrol, with 8 mL of, 1% plain lidocaine and in the joint Approach Used: anterolateral Procedure: The patient tolerated the procedure well and there was some relief with the local anesthesia Coding 68619 - Glenohumeral/Tronchanteric Bursa/Intraarticular Procedure code (CPT) selection complete Assessment & Plan Assessment & Plan (1) Osteoarthritis of knees, bilateral: Code(s): M17.0 - Bilateral primary osteoarthritis of knee Category: Medical Plan We discussed options today, which include steroid injection. The patient did consent to move forward with the bilateral knee injection, which was tolerated well. I recommended rest, ice, and elevation and OTC anti-inflammatories as needed for discomfort. If symptoms persist or worsen over the next 6-8 weeks, patient will contact the office, otherwise follow-up as needed. Patient Instructions: Scribed for Bridger Jones PA-C, by Marino Portillo registered medical transcriptionist, on 03/22/2024 at 9:45 AM EST.? I, Bridger Jones PA-C, have personally reviewed and agree with the information entered by the scribe. Coding Level of Care Code Est Pt Level 3 (11313) Diagnoses Osteoarthritis of knees, bilateral M17.0 CPT Codes Coding - Joint 7: 42835 - Glenohumeral/Tronchanteric Bursa/Intraarticular ([id number])
[2024-03-22 09:44] VITALS: BMI 38.8
== END 2024-03-22 10:10 | disposition home or self-care (01) ==
PROVIDERS: PCP Nurse Practitioner Family; Visit Provider Physician Assistant
DX: M17.0 Bilateral primary osteoarthritis of knee (principal)
CPT/HCPCS: 20610; 99213

== ENCOUNTER → 2024-03-22 09:34 | Outpatient (BNVA) | payer OTHER, SELFPAY | PROVIDERS: PCP Nurse Practitioner Family; Visit Provider Physician Assistant | DX: M17.0 Bilateral primary osteoarthritis of knee (principal) | CPT/HCPCS: 20610; J1010 ==

== ENCOUNTER 2024-04-27 05:55 | Outpatient (REF) | payer OTHER, SELFPAY ==
[2024-04-27 06:21] LABS: MANUAL DIFF FLAG NO
[2024-04-27 07:14] LABS: Basophils Percent Auto 0.4 % (0-2); Eosinophils Absolute Auto 0.2 X10*3/uL (0.0-0.4); Eosinophils Percent Auto 1.9 % (0-4); Hematocrit 49.8 % (42.0-52.0); Hemoglobin 17.6 g/dl (14.0-18.0); Imm Gran Abs Auto 0.05 X10*3/uL (0.00-0.03); Imm Gran Pct Auto 0.5 % (0.0-0.4); Lymphocytes Absolute Auto 2.4 X10*3/uL (1.2-4.9); Lymphocytes Percent Auto 24.5 % (20-40); Mean Corpuscular HGB Conc 35.3 g/dl (31.0-36.0); Mean Corpuscular Hemoglobin 30.8 pg (27.0-33.0); Mean Corpuscular Volume 87.1 fL (80.0-98.0); Monocytes Absolute Auto 0.8 X10*3/uL (0.1-1.2); Monocytes Percent Auto 8.2 % (2-11); Neutrophils Absolute Auto 6.4 x10*3/uL (2.0-8.3); Neutrophils Percent Auto 64.5 % (45-73); Platelet Count 235 X10*3/uL (160-400); Red Blood Count 5.72 X10*6/uL (4.60-5.80); Red Cell Distribution Width 13.2 % (11.0-16.0)
[2024-04-27 07:15] LABS: Basophils Absolute Auto 0.1 X10*3/uL (0.0-0.2); Basophils Percent Auto 0.5 % (0-2); Eosinophils Absolute Auto 0.2 X10*3/uL (0.0-0.4); Eosinophils Percent Auto 1.9 % (0-4); Hematocrit 49.9 % (42.0-52.0); Hemoglobin 17.6 g/dl (14.0-18.0); Imm Gran Abs Auto 0.05 X10*3/uL (0.00-0.03); Imm Gran Pct Auto 0.5 % (0.0-0.4); Lymphocytes Absolute Auto 2.5 X10*3/uL (1.2-4.9); Lymphocytes Percent Auto 25.3 % (20-40); Mean Corpuscular HGB Conc 35.3 g/dl (31.0-36.0); Mean Corpuscular Hemoglobin 30.9 pg (27.0-33.0); Mean Corpuscular Volume 87.7 fL (80.0-98.0); Mean Platelet Volume 10.2 fL (9.4-12.4); Monocytes Absolute Auto 0.8 X10*3/uL (0.1-1.2); Monocytes Percent Auto 7.7 % (2-11); Neutrophils Absolute Auto 6.3 x10*3/uL (2.0-8.3); Neutrophils Percent Auto 64.1 % (45-73); Platelet Count 215 X10*3/uL (160-400); Red Blood Count 5.69 X10*6/uL (4.60-5.80); Red Cell Distribution Width 13.2 % (11.0-16.0); White Blood Count 9.8 X10*3/uL (4.8-10.8)
[2024-04-27 07:44] LABS: Alanine Aminotransferase 21 U/L (0-40); Albumin Level 4.5 g/dL (3.5-5.0); Alkaline Phosphatase 68 U/L (39-117); Anion Gap 13 (12-20); Aspartate Amino Transferase 16 U/L (5-37); Bilirubin Total 0.9 mg/dL (0.0-1.0); Blood Urea Nitrogen 13 mg/dL (9-16); Calcium 9.5 mg/dL (8.4-10.2); Carbon Dioxide 28 mmol/L (22-29); Chloride 102 mmol/L (96-108); Cholesterol 187 mg/dL (<200); Estimated Glomerular Filt Rate > 60; Glucose Fasting 85 mg/dL (60-99); Glucose Random 85 mg/dL (60-115); HDL Cholesterol 32 mg/dL (>40); Iron 125 mcg/dL (45-160); LDL Cholesterol Calculated 132 mg/dL (<100); Percent Iron Saturation 49 % (15-50); Potassium 4.3 mmol/L (3.3-5.1); Sodium 139 mmol/L (135-145); Total Iron Binding Capacity 257 mcg/dL (228-428); Total Protein 7.4 g/dL (6.5-8.0); Triglycerides 119 mg/dL (<150); Unsaturated Iron Binding 132 ug/dL
[2024-04-27 07:47] LABS: Cholesterol 187 mg/dL (<200); HDL Cholesterol 34 mg/dL (>40); Iron 124 mcg/dL (45-160); LDL Cholesterol Calculated 130 mg/dL (<100); Percent Iron Saturation 48 % (15-50); Total Iron Binding Capacity 261 mcg/dL (228-428); Triglycerides 119 mg/dL (<150); Unsaturated Iron Binding 137 ug/dL
[2024-04-27 08:00] LABS: Ferritin 716 ng/mL (20-250); Prostate Specific Antigen 1.23 ng/mL (<0.05-4.0); Prostate Specific Antigen Scr 1.22 ng/mL (<0.05-4.0)
[2024-04-27 08:02] LABS: Ferritin 671 ng/mL (20-250); TSH reflex Free T4 2.18 uIU/mL (0.32-4.0)
[2024-04-27 08:25] LABS: Appearance Urine Clear; Color Urine Yellow; Glucose Urine UA Negative (Negative); Leukocyte Esterase Urine Negative (Negative); Nitrite Urine Negative (Negative); Specific Gravity - Urine 1.015 (1.005-1.025); Urine Blood Negative (Negative); Urine Ketones Negative (Negative); Urine Protein Negative (Neg-Trace)
== END 2024-04-27 05:56 | disposition home or self-care (01) ==
LOC: HO.LAB 05:55
PROVIDERS: Absent Provider Nurse Practitioner Adult Health; PCP Nurse Practitioner Family; Visit Provider Nurse Practitioner Family
DX: Z00.00 Encounter for general adult medical examination without abnormal findings (principal); E11.9 Type 2 diabetes mellitus without complications; Z12.5 Encounter for screening for malignant neoplasm of prostate; R79.89 Other specified abnormal findings of blood chemistry; D64.9 Anemia, unspecified; E29.1 Testicular hypofunction; R53.83 Other fatigue; R97.20 Elevated prostate specific antigen [PSA]
CPT/HCPCS: 36415; 80053; 80061; 81003; 82728; 83540; 84153; 84443; 85025

== ENCOUNTER 2024-07-11 06:04 | Outpatient (REF) | payer OTHER, SELFPAY | END 2024-07-11 06:05 | disposition home or self-care (01) | LOC: HO.LAB 06:04 | PROVIDERS: PCP Nurse Practitioner Family; Visit Provider Nurse Practitioner Family | DX: R79.0 Abnormal level of blood mineral (principal); R79.89 Other specified abnormal findings of blood chemistry | CPT/HCPCS: 36415; 81256 ==

== ENCOUNTER 2024-07-16 09:52 | Outpatient (AMB) | payer OTHER, SELFPAY ==
[2024-07-16 09:55] VITALS: BP 122/74; PULSE 56; O2SAT 99; BMI 36.9
--- NOTE | 2024-07-16 09:55 | A.OFFPC_ITS ---
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: No Accompanied by: Self / Same As Patient Allergies sulfamethoxazole [From BACTRIM DS] Allergy (Intermediate, Verified 07/16/24 09:57) skin sensitivity trimethoprim [From BACTRIM DS] Allergy (Intermediate, Verified 07/16/24 09:57) skin sensitivity Medication List - Last Reconciled 07/16/24 by BETSEY Ramirez- losartan 25 mg PO DAILY omeprazole 20 mg PO DAILY 30 days semaglutide 2.4 mg (3.5328 mL) subcut QWEEK Tobacco use date assessed: 12/21/23 Dental Screening Dental Screen Date: 12/21/23 HPI 6 month follow up HPI Details History of Present Illness The patient is a 53-year-old male presenting with concerns related to weight management. He has a history of obesity, currently weighing 245 lbs, with previous peaks at 278 lbs during the pandemic. He has been under the care of [facility] and has been prescribed Wegovy (semaglutide) for weight loss, initially started at 0.5 mg, with current administration at 2.4 mg. He reports a significant weight loss from a maximum of 278 lbs to his current weight of 245 lbs. Recommend continuing this medication, will send continued 2.4mg weekly dose. A history of iron supplementation was given, which led to elevated iron and ferritin levels. The patient ceased eating red meat and reduced iron intake following increased iron level findings. Awaiting hemochromatosis panel to result. Concerns about potential atrial fibrillation arise due to a family history, but the patient currently shows no signs of this condition. He has a history of sleep apnea, managed with a CPAP machine, which recently indicated motor issues. There are also issues related to testosterone management, which the patient stopped while traveling. He is to follow up with sleep medicine Social History - The patient travels internationally an d avoids carrying medication during travel due to potential customs issues. - Attempts weight management through t changes, including a significant reduction in red meat consumption. - Engages with functional medicine for p ersonalized treatment, paying [id number]-[id number] expenses for medications. Review of Systems - Cardiovascular: Reports no symptoms licea ggestive of atrial fibrillation currently. - Sleep/Respiratory: Reports issues with CPAP machine performance. - Endocrine: Reports a history of elevat ed ferritin and iron levels, altered diet to manage it. Reports not taking testosterone supplement for the past three months. - Musculoskeletal: Reports having varico se veins with occasional trace edema. Physical Exam - Cardiovascular- Heart sounds reveal S1 /S2, no murmurs detected. - Respiratory- Lungs are clear on auscul tation. - Extremities- Observed trace edema obesity noted A+Ox3 Results - Labs: Pending results for iron studies including ferritin and hereditary hemochromatosis genetic testing. - Tests and Diagnostics: DNA testing for hereditary hemochromatosis is still pending. Plan - Overweight/Obesity: Continue current r egimen of Wegovy with a focus on monitoring effectiveness through weight and BMI. - Elevated Ferritin: Await current lab r esults to evaluate potential hereditary hemochromatosis. Monitor ferritin and assess need for phlebotomy or further iron assessment. - Varicose Veins with Trace Edema: Monit or symptoms and consider compression therapy as needed. - Concerns for Atrial Fibrillation: Melina tor heart rhythm intermittently using technology, like wearable devices. Family history noted. - Sleep Apnea: Recommend contacting [facility] medicine to resolve CPAP functionality issues. - Elevated Iron Levels: Continually melina tor iron and ferritin levels; patient follows a modified diet with reduced red meat intake. - Testosterone Deficiency: Reassess test osterone therapy needs upon obtaining current testosterone levels. Patient was informed and verbally consented to the use of an ambient scribe for clinic note documentation during this visit. Discussion Notes During the visit, I reviewed the current weight management strategy with the patient's regimen of Wegovy, as prescribed by functional medicine. We discussed the financial implications and potential for insurance to cover the medication. I explained the genetic testing for hereditary hemochromatosis and the importance of monitoring ferritin and iron levels due to previous high levels. Potential atrial fibrillation concerns were addressed, with advice to use technology for heart rhythm monitoring given the family history. The patient was advised to contact sleep medicine for CPAP concerns. We discussed his history of testosterone deficiency and the rationale for pauses in therapy while traveling. Planned follow-ups depend on pending lab results for potential adjustment of therapies. Patient Instructions - Continue current diet and exercise reg imen, maintaining the use of Wegovy under medical supervision. - Monitor heart rhythm intermittently wi th personal health devices; report any abnormalities or symptoms. - Contact sleep medicine regarding CPAP machine concerns to prevent lapse in therapy. - Await results from ongoing lab tests a nd follow-up on iron level assessments. - Reassess testosterone therapy needs af ter current levels are obtained and reviewed. - Maintain reduced red meat intake to he lp manage iron levels. - Follow up with our office after receiv ing iron studies and genetic testing results. [facility] Medical History COVID-19 vaccine administered GERD (gastroesophageal reflux disease) Sleep apnea Tubular adenoma of colon HTN (hypertension), benign Surgical History History of esophagogastroduodenoscopy (EGD) Hx of varicose vein ligation and stripping Hx of tonsillectomy (~2001) Hx of colonoscopy Family History Mother Stroke, Onset Age: 74 Maternal Grandfather Colon cancer Father HTN (hypertension) Hypercholesteremia Social History Housing: House Alcohol intake: current Alcohol intake frequency: holidays/special occasions only Alcohol type: beer Patient Tobacco Use Status: Never used Tobacco e-Cigarette/Vaping Use: Never Used Second Hand Smoke Exposure: No service: No Current occupational status: employed Current occupation: [employer] Current occupational exposures/hazards: No Cognitive needs: No Hearing needs: No Vision needs: No Questionnaire PHQ-9 Over the last 2 weeks, how often have you been bothered by any of the following problems? 1. Little interest or pleasure in doing things: not at all 2. Feeling down, depressed, or hopeless: not at all 3. Trouble falling or staying asleep, or sleeping too much: not at all 4. Feeling tired or having little energy: not at all 5. Poor appetite or overeating: not at all 6. Feeling bad about yourself - or that you are a failure or have let yourself or your family down: not at all 7. Trouble concentrating on things, such as reading the newspaper or watching television: not at all 8. Moving or speaking so slowly that other people could have noticed. Or the opposite - being so fidgety or restless that you have been moving around a lot more than usual: not at all 9. Thoughts that you would be better off or of hurting yourself in some way: not at all Total score: 0 Depression Screening Interpretation: Negative Depression Screening Done: Yes 59801 - PHQ-9 Billing: Yes Source: Developed by Drs. Zachary Brand, Sarah Murray, Negrito Skinner and colleagues, with an educational nicci from [employer]. Thrive Questionnaire Date Thrive assessed: 07/16/24 I am a: Patient What is your living situation today?: I have a steady place to live Within the past 12 months, did the food you bought not last and you didn't have the money to get more?: Often true Within the past 12 months, did you worry whether your food would run out before you got money to buy more?: Never true Do you have trouble paying for medicines?: No Do you have trouble getting transportation to medical appointments?: No Do you have trouble paying your heating and electricity bill?: No Do you have trouble taking care of your child, family member or friend?: No Do you have trouble with day-to-day activities such as bathing, preparing meals, shopping, managing finances, etc.?: No Are you currently unemployed and looking for a job?: No Are you interested in more education?: No Please select the resources that you would like help with: None Currently or been in a relationship where the following occur: No concerns reported THRIVE Score: 1 AUDIT C Alcohol Use Questionnaire (AUDIT-C) 1. How often do you have a drink containing alcohol?: Monthly or less 2. How many drinks containing alcohol do you have on a typical day when you are drinking?: 1 or 2 3. How often do you have six or more drinks on one occasion?: Never Total Score: 1 Score Reviewed/Action Taken: Yes MELITA-7 AMB Questionnaire MELITA-7 Date MELITA - 7 assessed: 07/16/24 Feeling nervous, anxious, or on edge: 1 = Several days Not being able to stop or control worryin = Several days Worrying too much about different things: 1 = Several days Trouble relaxin = Not at all Being so restless that it is hard to sit still: 1 = Several days Becoming easily annoyed or irritable: 0 = Not at all Feeling afraid as if something awful might happen: 0 = Not at all Total MELITA-7 score (0-4 normal; 5-9 mild; 10-14 moderate; 15-21 severe): 4 Source: Developed by Drs. Zachary Brand, Sarah Murray, Negrito Skinner and colleagues, with an educational nicci from [employer]. MELITA-7 Assessment Billing MELITA-7 Assessment Tool: MELITA-7 Assessment 60092 Physical exam (Primary Care) Vital Signs: Last Vital Signs Pulse 56 07/16/24 09:55 BP 122/74 07/16/24 09:55 Pulse Ox 99 07/16/24 09:55 Oxygen Delivery Method Room Air 07/16/24 09:55 BMI result Body Mass Index 36.9 Tobacco/Smoking Status: Tobacco use Status Tobacco use date assessed 12/21/23 07/16/24 09:55 Patient Tobacco Use Status Never used Tobacco 07/16/24 09:55 Tobacco use type 12/21/23 16:29 e-Cigarette/Vaping Use Never Used 07/16/24 09:55 PHQ-9: PHQ-9 Score PHQ-9: Total score 0 07/16/24 10:13 Depression Screening Interpretation: Negative Thrive Assessment: Date of Thrive Assessment Date Thrive assessed 07/16/24 07/16/24 09:58 Currently or been in a relationship where the following occur: No concerns reported Coding Level of Care Code Est Pt Level 3 (85011) Diagnoses Elevated ferritin R79.89 Obesity E66.9 Screening PSA (prostate specific antigen) Z12.5 Morbid obesity E66.01 Additional Codes EMLITA-7 Assessment Billing - MELITA-7 Assessment Tool: MELITA-7 Assessment 54931 ([id number]) PHQ-9 - 96280 - PHQ-9 Billing: Yes ([id number]) Assessment & Plan Assessment & Plan (1) Elevated ferritin: Code(s): R79.89 - Other specified abnormal findings of blood chemistry Category: Medical (2) Obesity: Code(s): E66.9 - Obesity, unspecified Category: Medical (3) Screening PSA (prostate specific antigen): Code(s): Z12.5 - Encounter for screening for malignant neoplasm of prostate Category: Medical (4) Morbid obesity: Code(s): E66.01 - Morbid (severe) obesity due to excess calories Category: Medical Plan . Orders: Orders Complete Blood Count Auto Diff Today Z00.00 - Encounter for general adult medical examination without abnormal findings, Z12.5 - Encounter for screening for malignant neoplasm of prostate TSH reflex Free T4 Today Z00.00 - Encounter for general adult medical examination without abnormal findings, Z12.5 - Encounter for screening for mal ignant neoplasm of prostate UA CC w/rflx Micro + Cult Today Z12.5 - Encounter for screening for malignant neoplasm of prostate Lipid Panel Today Z00.00 - Encounter for general adult medical examination without abnormal findings, Z12.5 - Encounter for screening for malignant neoplasm of prostate Ferritin Today R79.89 - Other specified abnormal findings of blood chemistry, Z12.5 - Encounter for screening for malignant neoplasm of prostate Prostate Specific Antigen Scr Today Z12.5 - Encounter for screening for malignant neoplasm of prostate Testosterone, Free/Total Today E66.01 - Morbid (severe) obesity due to excess calories Comprehensive [place]. Panel Fast Today Z00.00 - Encounter for general adult medical examination without abnormal findings, Z12.5 - Encounter for screening for malignant neoplasm of prostate IRON PROFILE Today R79.89 - Other specified abnormal findings of blood chemistry, Z12.5 - Encounter for screening for malignant neoplasm of prostate Medications: Changed From semaglutide for 4 weeks 2.4 mg subcut QWEEK To semaglutide for 4 weeks, please fill this dose, not the .5mg 2.4 mg (3.5328 mL) subcut QWEEK 3 mL 0RF
== END 2024-07-16 10:48 | disposition home or self-care (01) ==
PROVIDERS: PCP Nurse Practitioner Family; Visit Provider Nurse Practitioner Family
DX: R79.89 Other specified abnormal findings of blood chemistry (principal); Z12.5 Encounter for screening for malignant neoplasm of prostate; E66.01 Morbid (severe) obesity due to excess calories; Z68.36 Body mass index [BMI] 36.0-36.9, adult

== ENCOUNTER → 2024-07-16 09:52 | Outpatient (BNVA) | payer OTHER, SELFPAY | PROVIDERS: PCP Nurse Practitioner Family; Visit Provider Nurse Practitioner Family | DX: R79.89 Other specified abnormal findings of blood chemistry (principal); E66.01 Morbid (severe) obesity due to excess calories; Z68.36 Body mass index [BMI] 36.0-36.9, adult | CPT/HCPCS: 96127 ==

== ENCOUNTER 2025-01-04 13:19 | Outpatient (AMB) | payer OTHER, SELFPAY ==
--- NOTE | 2025-01-04 13:20 | A.OFFVIS_ITS ---
Intake Visit Reasons: Inj-RT knee inj Intake Note: Giancarlo is a 54 year old male who presents today for a right knee cortisone injection. Patient was last seen in office on 03/22/24 and was given bilateral knee injections. Patient reports that his right knee causes him the most discomfort. He was recently prescribed prednisone and has completed the medication about 2 weeks ago. Allergies sulfamethoxazole [From BACTRIM DS] Allergy (Intermediate, Verified 01/04/25 13:35) skin sensitivity trimethoprim [From BACTRIM DS] Allergy (Intermediate, Verified 01/04/25 13:35) skin sensitivity Medication List - Last Reconciled 01/04/25 by Bridger Jones PA-C losartan 25 mg PO DAILY omeprazole 20 mg PO DAILY 30 days semaglutide (weight loss) (Wegovy) 2.4 mg (0.75 mL) subcut QWEEK 90 days HPI HPI Inj-RT knee inj: Details: 54-year-old gentleman returns to the office today for follow-up right knee pain. He was seen in the past for injections which were quite helpful. He has been able to increase activities as tolerated however the last several weeks he has had some discomfort and he has an upcoming trip that he would like to have some pain relief for. [facility] Medical History (Updated 01/04/25 @ 13:47 by Bridger Jones PA-C) COVID-19 vaccine administered GERD (gastroesophageal reflux disease) Sleep apnea Tubular adenoma of colon HTN (hypertension), benign Surgical History History of esophagogastroduodenoscopy (EGD) Hx of varicose vein ligation and stripping Hx of tonsillectomy (~2001) Hx of colonoscopy Family History Mother Stroke, Onset Age: 74 Maternal Grandfather Colon cancer Father HTN (hypertension) Hypercholesteremia Social History Housing: House Alcohol intake: current Alcohol intake frequency: holidays/special occasions only Alcohol type: beer Patient Tobacco Use Status: Never used Tobacco e-Cigarette/Vaping Use: Never Used Second Hand Smoke Exposure: No service: No Current occupational status: employed Current occupation: [employer] Current occupational exposures/hazards: No Cognitive needs: No Hearing needs: No Vision needs: No Review of Systems Const All systems reviewed & are unremarkable except as noted in HPI and below Physical Exam Extrem Other: right knee: Skin intact, no erythema or joint effusion. Tenderness along the medial joint line. Full ROM with crepitus. Negative Manuel?s. No ligamentous laxity. NVI. ? Office Procedures AMB Joint Injection/Aspiration Joint Injection/Aspiration Primary Site: right knee Prep: site was prepped using aseptic technique, ethochloride spray was applied and injection warnings given Injected: 80 mg of, DepoMedrol, with 8 mL of, 1% plain lidocaine and in the joint Approach Used: anterolateral Procedure: The patient tolerated the procedure well and there was some relief with the local anesthesia Coding 43277 - Glenohumeral/Tronchanteric Bursa/Intraarticular Procedure code (CPT) selection complete Assessment & Plan Assessment & Plan (1) Osteoarthritis of right knee: Code(s): M17.11 - Unilateral primary osteoarthritis, right knee Category: Medical Plan: We discussed options today and the plan is to proceed with a right knee steroid injection which he tolerated well. We also discussed the benefits of gel injections and if he is interested going forward he can contact our office and we can submit prior authorization. We also discussed the role of MRI imaging if conservative measures fail and we need to further evaluate the extent of his pain. At this time the patient will increase activities as tolerated and he will see me back if symptoms persist or worsen. Coding Level of Care Code Est Pt Level 3 (47124) Complex EM visit Add On G2211 Diagnoses Osteoarthritis of right knee M17.11 CPT Codes Coding - Joint 7: 18959 - Glenohumeral/Tronchanteric Bursa/Intraarticular ([id number])
--- OUTSIDE RECORDS SUMMARY | 2025-01-04 13:23 | XMS_ITS | Patient Health Record ---
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 Field Coach Name Role Phone RESHMA CHING Unavailable [phone] Allergies Allergen (clinical drug ingredient) Drug/Non Drug Allergy documented on EMR Reaction Allergy Type Onset Date Status sulfamethoxazole / trimethoprim Bactrim rash Drug Allergy Active Reason For Referral No Information Medications Medication SIG (Take, Route, Fr equency, Duration) Notes Start Date End Date Status Flonase 50 MCG/ACT 1 spray in each nost ril Nasally Once a day for 30 day(s) Active PriLOSEC OTC 20 MG 1 tablet Orally Once a day for 30 day(s) Active Contrave 8-90 MG Take two tablets by mouth twice a day Active Immunizations Vaccine Route Administration Date Status Comme nts Moderna Covid-19 Vaccine IM Intramuscular 10/14/2020 Admin istered Social History Tobacco Use: Social History Observation Description Date Details (start date - stop date) Never Smoker NA - NA Tobacco Use/Smoking Question Answer Notes Are you a nonsmoker Section Notes: does not smoke or abuse alco hol does not smoke or abuse alco hol does not smoke or abuse alco hol does not smoke or abuse alco hol does not smoke or abuse alco hol does not smoke or abuse alco hol Problems Problem Type SNOMED Code ICD Code Onset Dates Problem Status W/U Status Risk Notes Problem Hypothyroidism (46743397) Hypothyroidism, unspecified (E03.9) Active confirmed Problem Obesity (243394137) Other obesity (E66.8) Active confirmed Problem Gastro-esophageal reflux disease with esophagitis (853015980) Gastro-esophage al reflux disease with esophagitis (K21.0) Active confirmed Problem Body mass index 35.00 to 39.99 (739695410666439) Body mass index (BMI) 36.0-36.9, adult (Z68.36) Active confirmed Problem Body mass index 35.00 to 39.99 (033655905277794) Body mass index (BMI) 37.0-37.9, adult (Z68.37) Active confirmed Problem Body mass index 35.00 to 39.99 (564121062209048) Body mass index (BMI) 38.0-38.9, adult (Z68.38) Active confirmed Problem Body mass index 40+ - severely obese (006569036) Body mass index (BMI) 40.0-44.9, adult (Z68.41) Active confirmed Problem Morbid obesity (159675938) Morbid obesity (E66.01) Active confirmed Plan Of Treatment No Information Insurance Providers Payer Name Payer Address Payer Phone Subscriber Number Group Number Insured Name Patient Relationship to Insured Coverage Start Date Coverage End Date [facility] [address] [place] [address] [id number] KARLEY SU Self - patient is the insured 9 Medications Administered Medication Instructions Date of Administration Dosage Notes [facility] B12 INJECTION 09/02/2022 lot # [id number] Medical (General) History Surgical History Surgery Date(Month/Year) tonsillectomy varicose vein stripping
== END 2025-01-04 13:48 | disposition home or self-care (01) ==
LOC: HO.HOS 13:20
PROVIDERS: PCP Nurse Practitioner Family; Visit Provider Physician Assistant
DX: M17.11 Unilateral primary osteoarthritis, right knee (principal)
CPT/HCPCS: 20610; 99213

== ENCOUNTER → 2025-01-04 13:19 | Outpatient (BNVA) | payer OTHER, SELFPAY | PROVIDERS: PCP Nurse Practitioner Family; Visit Provider Physician Assistant | DX: M17.11 Unilateral primary osteoarthritis, right knee (principal) | CPT/HCPCS: 20610; J1010; J2003 ==

== ENCOUNTER 2025-01-17 14:52 | Outpatient (AMB) | payer OTHER, SELFPAY ==
--- NOTE | 2025-01-17 14:54 | MHC.PC.OV ---
Vital Signs 01/17/25 14:57 Height 5 ft 8 in Weight 236 lb BMI 35.9 BP 138/84 Blood Pressure Location Rt brachial Position Sitting Pulse 71 Pulse Source Pulse Oximeter Temp 97.8 F Temp Source Oral Pulse Oximetry (%) 98 Oxygen Delivery Method Room Air Intake Visit Reasons: ANNUAL PE Test Kitchen Home Economist Required: No Accompanied by: Self / Same As Patient Allergies sulfamethoxazole [From BACTRIM DS] Allergy (Intermediate, Verified 01/17/25 15:42) skin sensitivity trimethoprim [From BACTRIM DS] Allergy (Intermediate, Verified 01/17/25 15:42) skin sensitivity Medication List - Last Reconciled 01/17/25 by Jeferson Vivar, AIRPLANE P[employer] SUPERVISOR- losartan 25 mg PO DAILY omeprazole 20 mg PO DAILY 30 days semaglutide (weight loss) (Wegovy) 2.4 mg (0.75 mL) subcut QWEEK 90 days Tobacco use date assessed: 01/17/25 Dental Screening Dental Screen Date: 01/17/25 Did you have a dental visit in the last 12 months?: Yes Did you have a dental problem in the last 6 months where you did not have access to dental care?: No Was dental information given to patient?: Patient has dentist HPI ANNUAL PE HPI Details History of Present Illness The patient is a 54-year-old male presenting for a wellness examination and follow-up regarding dermatological concerns. He has a history of seeing a display maker approximately three years ago for skin evaluations due to his fair complexion. During those visits, no abnormal findings were detected, and there have been no new changes or concerns regarding skin lesions since that time. The patient denies having any acute symptoms such as chest pain, shortness of breath, abdominal discomfort, or changes in bowel habits. His colon cancer screening remains current. There was a past issue concerning vitamin D prescription duration as discussed with him, but it does not currently impact his health or treatments. Health Maintenance - Colon cancer screening is up to date - Monitoring of skin health due to fair complexion Social History Review of Systems - Cardiovascular: Denies chest pain - Respiratory: Denies shortness of breath - Gastrointestinal: Denies abdominal pain, blood in stool, constipation, diarrhea Physical Exam General: Cooperative, healthy appearing, comfortable, no acute distress and well developed, obese Orientation: Patient oriented x3 Limitations: No limitations Head: Normal to inspection Ears: Hearing grossly normal bilaterally Nose: Normal external nose present Face and sinus: Normal facial exam Eyes: Appearance normal, both eyes and all related structures Neck: Normal visual inspection and Yes full ROM Respiratory: Normal respiratory effort and able to speak in complete sentences. Clear to auscultation bilaterally Cardiovascular: Regular rate and rhythm. Normal S1 and S2 GI: Normal to inspection. Soft to palpation and nontender Skin: Very fair skinned. No abnormal lesions noted, but dermatological evaluation recommended Neuro: Patient oriented x3 Extremities: Normal to inspection Results - Labs: Ordered and entered in July Plan Given the patient's dermatological history and skin type, I plan to arrange for a dermatological evaluation, as three years have passed since his last visit. The patient's overall wellness remains good with current colon cancer screenings. I have also reminded the patient about completing previously ordered labs to monitor his health parameters, specifically focusing on levels that may have required attention like vitamin D, and advised on managing any pharmacy prescription discrepancies. Discussion Notes During our discussion, I emphasized the importance of continuous monitoring of dermatological health, particularly given the patient's fair skin, and the advantage of early detection of potential issues. I advised planning for a dermatological consultation. Patient Instructions - Follow up with dermatological evaluation as planned - Complete pending laboratory tests as previously ordered - Maintain routine health screenings, particularly colon cancer screening PFSH Medical History COVID-19 vaccine administered GERD (gastroesophageal reflux disease) Sleep apnea Tubular adenoma of colon HTN (hypertension), benign Surgical History History of esophagogastroduodenoscopy (EGD) Hx of varicose vein ligation and stripping Hx of tonsillectomy (~2001) Hx of colonoscopy Family History Mother Stroke, Onset Age: 74 Maternal Grandfather Colon cancer Father HTN (hypertension) Hypercholesteremia Social History Housing: House Alcohol intake: current Alcohol intake frequency: holidays/special occasions only Alcohol type: beer Patient Tobacco Use Status: Never used Tobacco e-Cigarette/Vaping Use: Never Used Second Hand Smoke Exposure: No service: No Current occupational status: employed Current occupation: [employer] Current occupational exposures/hazards: No Cognitive needs: No Hearing needs: No Vision needs: No Questionnaire PHQ-9 Over the last 2 weeks, how often have you been bothered by any of the following problems? 1. Little interest or pleasure in doing things: not at all 2. Feeling down, depressed, or hopeless: not at all 3. Trouble falling or staying asleep, or sleeping too much: not at all 4. Feeling tired or having little energy: not at all 5. Poor appetite or overeating: not at all 6. Feeling bad about yourself - or that you are a failure or have let yourself or your family down: not at all 7. Trouble concentrating on things, such as reading the newspaper or watching television: not at all 8. Moving or speaking so slowly that other people could have noticed. Or the opposite - being so fidgety or restless that you have been moving around a lot more than usual: not at all 9. Thoughts that you would be better off or of hurting yourself in some way: not at all Total score: 0 Depression Screening Interpretation: Negative Depression Screening Done: Yes Source: Developed by Drs. Zachary Brand, Sarah Murray, Negrito Skinner and colleagues, with an educational nicci from [employer]. Thrive Questionnaire Date Thrive assessed: 01/17/25 I am a: Patient What is your living situation today?: I have a steady place to live Within the past 12 months, did the food you bought not last and you didn't have the money to get more?: Never true Within the past 12 months, did you worry whether your food would run out before you got money to buy more?: Never true Do you have trouble paying for medicines?: No Do you have trouble getting transportation to medical appointments?: No Do you have trouble paying your heating and electricity bill?: No Do you have trouble taking care of your child, family member or friend?: No Do you have trouble with day-to-day activities such as bathing, preparing meals, shopping, managing finances, etc.?: No Are you currently unemployed and looking for a job?: No Are you interested in more education?: No Please select the resources that you would like help with: None Currently or been in a relationship where the following occur: No concerns reported THRIVE Score: 0 AUDIT C Alcohol Use Questionnaire (AUDIT-C) 1. How often do you have a drink containing alcohol?: Never Total Score: 0 MELITA-7 AMB Questionnaire MELITA-7 Date MELITA - 7 assessed: 01/17/25 Feeling nervous, anxious, or on edge: 0 = Not at all Not being able to stop or control worryin = Not at all Worrying too much about different things: 1 = Several days Trouble relaxin = Not at all Being so restless that it is hard to sit still: 0 = Not at all Becoming easily annoyed or irritable: 0 = Not at all Feeling afraid as if something awful might happen: 0 = Not at all Total MELITA-7 score (0-4 normal; 5-9 mild; 10-14 moderate; 15-21 severe): 1 Source: Developed by Drs. Zachary Brand, Sarah Murray, Negrito Skinner and colleagues, with an educational nicci from [employer]. Physical exam (Primary Care) Vital Signs: Last Vital Signs Temp 97.8 F 01/17/25 14:57 Pulse 71 01/17/25 14:57 BP 138/84 01/17/25 14:57 Pulse Ox 98 01/17/25 14:57 Oxygen Delivery Method Room Air 01/17/25 14:57 BMI result Body Mass Index 35.9 Tobacco/Smoking Status: Tobacco use Status Tobacco use date assessed 01/17/25 01/17/25 14:56 Patient Tobacco Use Status Never used Tobacco 01/17/25 14:56 Tobacco use type 12/21/23 16:29 e-Cigarette/Vaping Use Never Used 01/17/25 14:56 PHQ-9: PHQ-9 Score PHQ-9: Total score 0 01/17/25 15:41 Depression Screening Interpretation: Negative Thrive Assessment: Date of Thrive Assessment Date Thrive assessed 01/17/25 01/17/25 14:56 Currently or been in a relationship where the following occur: No concerns reported Coding Level of Care Code Est Pt Prev Care 40-64y(71755) Diagnoses Skin lesions L98.9 Physical exam Z00.00 Assessment & Plan Assessment & Plan (1) Skin lesions: Code(s): L98.9 - Disorder of the skin and subcutaneous tissue, unspecified Category: Medical (2) Physical exam: Code(s): Z00.00 - Encounter for general adult medical examination without abnormal findings Category: Medical Plan . Orders: Referrals Dermatology Referral L98.9 - Disorder of the skin and subcutaneous tissue, unspecified
[2025-01-17 14:57] VITALS: BP 138/84; PULSE 71; TEMP 36.6; O2SAT 98; BMI 35.9
--- OUTSIDE RECORDS SUMMARY | 2025-01-17 17:34 | XMS_ITS | Patient Health Record ---
Author Organization [facility] Address [address] [place] [address] Care Team Providers Care Assistant Principal Name Role Phone RESHMA CHING Unavailable [phone] Allergies Allergen (clinical drug ingredient) Drug/Non Drug [...] Status W/U Status Risk Notes Problem Hypothyroidism (66790520) Hypothyroidism, unspecified (E03.9) Active confirmed Problem Obesity (257833218) Other obesity (E66.8) Active confirmed Problem Gastro-esophageal reflux disease with esophagitis (314814620) Gastro-esophage al reflux disease with esophagitis (K21.0) Active confirmed Problem Body mass index 35.00 to 39.99 (772055257283062) Body mass index (BMI) 36.0-36.9, adult (Z68.36) Active confirmed Problem Body mass index 35.00 to 39.99 (828768581950443) Body mass index (BMI) 37.0-37.9, adult (Z68.37) Active confirmed Problem Body mass index 35.00 to 39.99 (137400336715236) Body mass index (BMI) 38.0-38.9, adult (Z68.38) Active confirmed Problem Body mass index 40+ - severely obese (780812303) Body mass index (BMI) 40.0-44.9, adult (Z68.41) Active confirmed Problem Morbid obesity (067672899) Morbid obesity (E66.01) Active confirmed Plan Of Treatment No Information Insurance Providers Payer Name Payer Address Payer Phone Subscriber Number Group Number Insured Name Patient Relationship to Insured Coverage Start Date Coverage End Date [facility] [address] [place] [address] [id number] KARLEY SU Self - patient is the insured 9 Medications Administered Medication Instructions Date of Administration Dosage Notes [facility] B12 INJECTION 09/02/2022 lot # [id number] Medical (General) History Surgical History Surgery Date(Month/Year) tonsillectomy varicose vein stripping
== END 2025-01-17 15:41 | disposition home or self-care (01) ==
LOC: HO.HMCC 14:52
PROVIDERS: PCP Nurse Practitioner Family; Visit Provider Nurse Practitioner Family
DX: L98.9 Disorder of the skin and subcutaneous tissue, unspecified (principal); Z00.00 Encounter for general adult medical examination without abnormal findings

== ENCOUNTER → 2025-01-17 14:52 | Outpatient (BNVA) | payer OTHER, SELFPAY | PROVIDERS: PCP Nurse Practitioner Family; Visit Provider Nurse Practitioner Family ==

== ENCOUNTER 2025-02-19 07:20 | Outpatient (REF) | payer OTHER, SELFPAY ==
--- OUTSIDE RECORDS SUMMARY | 2025-02-19 07:23 | XMS_ITS | Patient Health Record ---
Author Organization [facility] Address [address] [place] [address] Care Team Providers Care Distance Learning Unit Leader Name Role Phone RESHMA CHING Unavailable [phone] Allergies Allergen (clinical drug ingredient) Drug/Non Drug Allergy documented on EMR Reaction Allergy Type Onset Date Status sulfamethoxazole / trimethoprim Bactrim rash Drug Allergy Active Reason For Referral No Information Medications Medication SIG (Take, Route, Fr equency, Duration) Notes Start Date End Date Status Flonase 50 MCG/ACT 1 spray in each nost ril Nasally Once a day; Duration: 30 day(s) Active PriLOSEC OTC 20 MG 1 tablet Orally Once a day; Duration: 30 day(s) Active Contrave 8-90 MG Take [...] Status W/U Status Risk Notes Problem Hypothyroidism (32659625) Hypothyroidism, unspecified (E03.9) Active confirmed Problem Obesity (743932763) Other obesity (E66.8) Active confirmed Problem Gastro-esophageal reflux disease with esophagitis (521916152) Gastro-esophage al reflux disease with esophagitis (K21.0) Active confirmed Problem Body mass index 35.00 to 39.99 (564349762049266) Body mass index (BMI) 36.0-36.9, adult (Z68.36) Active confirmed Problem Body mass index 35.00 to 39.99 (318518230201066) Body mass index (BMI) 37.0-37.9, adult (Z68.37) Active confirmed Problem Body mass index 35.00 to 39.99 (613318384948467) Body mass index (BMI) 38.0-38.9, adult (Z68.38) Active confirmed Problem Body mass index 40+ - severely obese (127778395) Body mass index (BMI) 40.0-44.9, adult (Z68.41) Active confirmed Problem Morbid obesity (849723173) Morbid obesity (E66.01) Active confirmed Plan Of Treatment No Information Insurance Providers Payer Name Payer Address Payer Phone Subscriber Number Group Number Insured Name Patient Relationship to Insured Coverage Start Date Coverage End Date [place] [address] [place] [address] [id number] KARLEY SU Self - patient is the insured 9 Medications Administered Medication Instructions Date of Administration Dosage Notes [facility] B12 INJECTION 09/02/2022 lot # [id number] Medical (General) History Surgical History Surgery Date(Month/Year) tonsillectomy varicose vein stripping
[2025-02-19 07:38] LABS: MANUAL DIFF FLAG NO
[2025-02-19 07:49] LABS: Hematocrit 43.2 % (42.0-52.0); Hemoglobin 15.6 g/dl (14.0-18.0); Imm Gran Abs Auto 0.01 X10*3/uL (0.00-0.03); Imm Gran Pct Auto 0.1 % (0.0-0.4); Lymphocytes Absolute Auto 2.4 X10*3/uL (1.2-4.9); Mean Corpuscular HGB Conc 36.1 g/dl (31.0-36.0); Mean Corpuscular Hemoglobin 31.4 pg (27.0-33.0); Mean Corpuscular Volume 86.9 fL (80.0-98.0); NRBC Abs Auto 0.000 X10*3/uL (0.0-0.012); NRBC Pct Auto 0.0 /100WBC (0.0-0.2); Platelet Count 218 X10*3/uL (160-400); Red Blood Count 4.97 X10*6/uL (4.60-5.80); White Blood Count 8.7 X10*3/uL (4.8-10.8)
[2025-02-19 07:50] LABS: Hematocrit 43.9 % (42.0-52.0); Hemoglobin 15.8 g/dl (14.0-18.0); Mean Corpuscular HGB Conc 36.0 g/dl (31.0-36.0); Mean Corpuscular Hemoglobin 31.4 pg (27.0-33.0); Mean Corpuscular Volume 87.3 fL (80.0-98.0); NRBC Abs Auto 0.000 X10*3/uL (0.0-0.012); NRBC Pct Auto 0.0 /100WBC (0.0-0.2); Platelet Count 219 X10*3/uL (160-400); Red Blood Count 5.03 X10*6/uL (4.60-5.80); White Blood Count 8.6 X10*3/uL (4.8-10.8)
[2025-02-19 07:52] LABS: Appearance Urine Clear; Glucose Urine UA Negative (Negative); PH 6.5 (5.0-9.0); Specific Gravity - Urine 1.010 (1.005-1.025)
[2025-02-19 08:42] LABS: Alanine Aminotransferase 21 U/L (0-40); Albumin Level 4.5 g/dL (3.5-5.0); Alkaline Phosphatase 65 U/L (39-117); Anion Gap 12 (12-20); Aspartate Amino Transferase 21 U/L (5-37); Blood Urea Nitrogen 12 mg/dL (9-16); Calcium 8.9 mg/dL (8.4-10.2); Carbon Dioxide 27 mmol/L (22-29); Chloride 106 mmol/L (96-108); Cholesterol 156 mg/dL (<200); Estimated Glomerular Filt Rate > 60; HDL Cholesterol 37 mg/dL (>40); Iron 127 mcg/dL (45-160); Percent Iron Saturation 52 % (15-50); Potassium 3.8 mmol/L (3.3-5.1); Sodium 141 mmol/L (135-145); Total Iron Binding Capacity 242 mcg/dL (228-428); Total Protein 6.8 g/dL (6.5-8.0); Triglycerides 100 mg/dL (<150); Unsaturated Iron Binding 115 ug/dL
[2025-02-19 08:51] LABS: Ferritin 827 ng/mL (20-250)
[2025-02-23 19:07] LABS: Testosterone, Free 49.0 pg/mL (35.0-155.0)
[2025-02-26 08:13] LABS: Estradiol Ultra Sensitive 26 pg/mL (< OR = 29)
== END 2025-02-19 07:21 | disposition home or self-care (01) ==
LOC: HO.LAB 07:20
PROVIDERS: Nurse Practitioner Adult Health; Visit Provider Nurse Practitioner Family
DX: Z00.00 Encounter for general adult medical examination without abnormal findings (principal); Z12.5 Encounter for screening for malignant neoplasm of prostate; E66.01 Morbid (severe) obesity due to excess calories; R79.89 Other specified abnormal findings of blood chemistry; E29.1 Testicular hypofunction; D64.9 Anemia, unspecified; E78.5 Hyperlipidemia, unspecified; K76.0 Fatty (change of) liver, not elsewhere classified; R53.83 Other fatigue; R97.20 Elevated prostate specific antigen [PSA]
CPT/HCPCS: 36415; 80053; 80061; 81003; 82670; 82728; 83540; 84144; 84153; 84402; 84403; 84443; 85025; 85027

== ENCOUNTER 2025-04-02 06:40 | Outpatient (AMB) | payer OTHER, SELFPAY ==
--- OUTSIDE RECORDS SUMMARY | 2025-04-02 06:44 | XMS_ITS | Patient Health Record ---
Author Organization [facility] Address [address] [place] [address] Care Team Providers Care Network Architect Name Role Phone RESHMA CHING Unavailable [phone] Allergies Allergen (clinical drug ingredient) Drug/Non Drug [...] Status W/U Status Risk Notes Problem Hypothyroidism (19554469) Hypothyroidism, unspecified (E03.9) Active confirmed Problem Obesity (450196576) Other obesity (E66.8) Active confirmed Problem Gastro-esophageal reflux disease with esophagitis (952207228) Gastro-esophage al reflux disease with esophagitis (K21.0) Active confirmed Problem Body mass index 35.00 to 39.99 (146007748821668) Body mass index (BMI) 36.0-36.9, adult (Z68.36) Active confirmed Problem Body mass index 35.00 to 39.99 (983722862348078) Body mass index (BMI) 37.0-37.9, adult (Z68.37) Active confirmed Problem Body mass index 35.00 to 39.99 (425913053917509) Body mass index (BMI) 38.0-38.9, adult (Z68.38) Active confirmed Problem Body mass index 40+ - severely obese (717662827) Body mass index (BMI) 40.0-44.9, adult (Z68.41) Active confirmed Problem Morbid obesity (559839508) Morbid obesity (E66.01) Active confirmed Plan Of Treatment No Information Insurance Providers Payer Name Payer Address Payer Phone Subscriber Number Group Number Insured Name Patient Relationship to Insured Coverage Start Date Coverage End Date Amanda [address] [place] [address] [id number] KARLEY SU Self - patient is the insured 9 Medications Administered Medication Instructions Date of Administration Dosage Notes [facility] B12 INJECTION 09/02/2022 lot # [id number] Medical (General) History Surgical History Surgery Date(Month/Year) tonsillectomy varicose vein stripping
--- NOTE | 2025-04-02 07:43 | A.OFFPC_ITS ---
Intake Visit Reasons: tele Allergies sulfamethoxazole (From BACTRIM DS) Allergy (Intermediate, Verified 04/02/25 07:44) skin sensitivity trimethoprim (From BACTRIM DS) Allergy (Intermediate, Verified 04/02/25 07:44) skin sensitivity Medication List - Last Reconciled 04/02/25 by SANDHYA Ramirez losartan 25 mg PO DAILY omeprazole 20 mg PO DAILY 30 days tirzepatide (weight loss) (Zepbound) 2.5 mg (0.5 mL) subcut QWEEK Tobacco use date assessed: 01/17/25 Dental Screening Dental Screen Date: 01/17/25 HPI tele HPI Details History of Present Illness The patient is a 54-year-old male presenting with sleep apnea management. The patient has been diagnosed with severe sleep apnea and was recently evaluated by sleep medicine specialists. They recommended initiating treatment with Zepbound, which has shown efficacy in patients with sleep apnea. The patient had previously been on Wegovy but discontinued it over a week ago. He reports doing well otherwise and denies experiencing chest pain, shortness of breath, dizziness, or headaches. Review of Systems - Respiratory: Denies shortness of breat h. - Cardiovascular: Denies chest pain. - Neurological: Denies dizziness, headac hes. Plan The patient will be started on a low dose of Zepbound as recommended by sleep medicine specialists for the management of severe sleep apnea. The patient has discontinued Wegovy over a week ago, and the transition to Zepbound is expected to improve his condition. Discussion Notes I discussed with the patient the plan to initiate Zepbound for his severe sleep apnea, as recommended by the sleep medicine team. We reviewed the discontinuation of Wegovy and the expected benefits of Zepbound in managing his condition. Patient Instructions - Start taking Zepbound as prescribed. - Discontinue Wegovy if not already done . - Monitor for any side effects and repor t them. [facility] Medical History COVID-19 vaccine administered GERD (gastroesophageal reflux disease) Sleep apnea Tubular adenoma of colon HTN (hypertension), benign Surgical History History of esophagogastroduodenoscopy (EGD) Hx of varicose vein ligation and stripping Hx of tonsillectomy (~2001) Hx of colonoscopy Family History Mother Stroke, Onset Age: 74 Maternal Grandfather Colon cancer Father HTN (hypertension) Hypercholesteremia Social History Housing: House Alcohol intake: current Alcohol intake frequency: holidays/special occasions only Alcohol type: beer Patient Tobacco Use Status: Never used Tobacco e-Cigarette/Vaping Use: Never Used Second Hand Smoke Exposure: No service: No Current occupational status: employed Current occupation: [employer] Current occupational exposures/hazards: No Cognitive needs: No Hearing needs: No Vision needs: No Questionnaire Thrive Questionnaire Date Thrive assessed: 01/17/25 I am a: Patient What is your living situation today?: I have a steady place to live Within the past 12 months, did the food you bought not last and you didn't have the money to get more?: Never true Within the past 12 months, did you worry whether your food would run out before you got money to buy more?: Never true Do you have trouble paying for medicines?: No Do you have trouble getting transportation to medical appointments?: No Do you have trouble paying your heating and electricity bill?: No Do you have trouble taking care of your child, family member or friend?: No Do you have trouble with day-to-day activities such as bathing, preparing meals, shopping, managing finances, etc.?: No Are you currently unemployed and looking for a job?: No Are you interested in more education?: No Please select the resources that you would like help with: None Currently or been in a relationship where the following occur: No concerns reported THRIVE Score: 0 MELITA-7 AMB Questionnaire MELITA-7 Date MELITA - 7 assessed: 01/17/25 Source: Developed by Drs. Zachary Brand, Sarah Murray, Negrito Skinner and colleagues, with an educational nicci from [email or web address]. Physical exam (Primary Care) Tobacco/Smoking Status: Tobacco use Status Tobacco use date assessed 01/17/25 03/20/25 14:21 Patient Tobacco Use Status Never used Tobacco 03/20/25 14:21 Tobacco use type 03/20/25 14:21 e-Cigarette/Vaping Use Never Used 03/20/25 14:21 Thrive Assessment: Date of Thrive Assessment Date Thrive assessed 01/17/25 03/20/25 14:21 Currently or been in a relationship where the following occur: No concerns reported Telehealth Telehealth Telehealth Platform: [employer] Location of provider rendering services: practice address Location of patient: address on file Patient Identification confirmed using: Name, : Yes Telehealth method: video Patient verbally consented to treatment: Yes Patient verbally consented to billing insurance company: Yes Patient informed of any privacy concerns related to visit: Yes Minutes spent on Phone/Video with Pt.: 10 Coding Level of Care Code Tele Est Pt Level 3 (15776) Diagnoses Morbid obesity E66.01 STEPH (obstructive sleep apnea) G47.33 Assessment & Plan Assessment & Plan (1) Morbid obesity: Code(s): E66.01 - Morbid (severe) obesity due to excess calories Category: Medical (2) STEPH (obstructive sleep apnea): Code(s): G47.33 - Obstructive sleep apnea (adult) (pediatric) Category: Medical Plan . Medications: New tirzepatide (weight loss) (Zepbound) for 4 weeks 2.5 mg (0.5 mL) subcut QWEEK 2 mL 0RF Discontinued semaglutide (weight loss) (Wegovy) Discontinued Reason: Doctor's Order 2.4 mg (0.75 mL) subcut QWEEK 90 days 9.75 mL 2RF
== END 2025-04-02 10:51 | disposition home or self-care (01) ==
LOC: HO.HMCC 06:41
PROVIDERS: PCP Nurse Practitioner Family; Visit Provider Nurse Practitioner Family
DX: G47.33 Obstructive sleep apnea (adult) (pediatric) (principal); E66.01 Morbid (severe) obesity due to excess calories

== ENCOUNTER → 2025-05-15 14:30 | Outpatient (BNV) | payer OTHER, SELFPAY | PROVIDERS: PCP Nurse Practitioner Family; Referring Provider Nurse Practitioner Family; Visit Provider Nurse Practitioner Family | DX: R79.89 Other specified abnormal findings of blood chemistry (principal) | CPT/HCPCS: 99204 ==

== ENCOUNTER 2025-05-24 06:10 | Outpatient (REF) | payer OTHER, SELFPAY ==
[2025-05-24 08:59] LABS: HBc Num1 0.08 S/CO (0.00-0.79); HBsAGNum1 0.54 S/CO (0.00-0.99); HIV Num 1 0.06 S/CO (0.00-0.99); Hepatitis B Surface Antigen Negative (Negative); ~HepC Num1 0.09 S/CO (0.00-0.79); ~Hepatitis B Surface Antibody REACTIVE (Nonreactive); ~Hepatitis C Antibody Nonreactive (Nonreactive)
[2025-06-05 14:09] LABS: Anti Nuclear Antibody Screen POSITIVE (NEGATIVE); Anti Nuclear Antibody Titer 1:160 titer
== END 2025-05-24 06:11 | disposition home or self-care (01) ==
LOC: HO.LAB 06:10
PROVIDERS: PCP Nurse Practitioner Family; Visit Provider Nurse Practitioner Family
DX: Z01.84 Encounter for antibody response examination (principal); Z11.4 Encounter for screening for human immunodeficiency virus [HIV]; R79.89 Other specified abnormal findings of blood chemistry; R79.9 Abnormal finding of blood chemistry, unspecified
CPT/HCPCS: 36415; 85652; 86038; 86039; 86704; 86706; 86803; 87340; 87389; 88184; 88185

== ENCOUNTER 2025-07-03 07:38 | Outpatient (AMB) | payer OTHER, SELFPAY ==
--- NOTE | 2025-07-03 08:05 | MHC.PC.OV ---
Intake Visit Reasons: 3m follow up Allergies sulfamethoxazole (From BACTRIM DS) Allergy (Intermediate, Verified 05/15/25 14:30) skin sensitivity trimethoprim (From BACTRIM DS) Allergy (Intermediate, Verified 05/15/25 14:30) skin sensitivity Medication List - Last Reconciled 07/03/25 by BETSEY Ramirez-ROCHELLE losartan 25 mg PO DAILY omeprazole 20 mg PO DAILY semaglutide (weight loss) (Wegovy) 2.4 mg (0.75 mL) subcut QWEEK Tobacco use date assessed: 01/17/25 Dental Screening Dental Screen Date: 01/17/25 HPI 3m follow up HPI Details History of Present Illness The patient is a 54-year-old male presenting for a telehealth follow-up visit for weight management. He is currently taking Wegovy and is doing well, with his weight starting to decrease after a slight fluctuation. The patient reports being bitten by two ticks recently and experiencing achy joints. He is also being followed by hematology for increased ferritin. He denies any fevers, chills, rashes, or lesions associated with the tick bites. He also denies chest pain, increased shortness of breath, suicidal ideation, and homicidal ideation. Review of Systems - General: Reports feeling quite well. - Constitutional: Denies fevers and chills. - Integumentary: Denies rashes or lesions. - Cardiovascular: Denies chest pain. - Respiratory: Denies increased shortness of breath. - Musculoskeletal: Reports achy joints. - Psychiatric: Denies suicidal and homicidal ideation. Plan 1. Weight Management The patient is tolerating Wegovy well for weight loss, and after a minor fluctuation, his weight is now decreasing. The medication will be continued. 2. Tick Bite The patient reports two recent tick bites and associated achy joints, but denies other symptoms such as fever, chills, or rash. The joint aches could be multifactorial, potentially related to aging or his known increased ferritin. To evaluate for tick-borne illness, Lyme testing and tick testing will be ordered. 3. Health Maintenance The patient is due for routine laboratory studies. A PSA test will be added for prostate cancer screening. Discussion Notes I have continued the patient's prescription for Wegovy for weight loss, as he is doing well with it. I also informed him that I will be ordering routine labs, including a PSA for prostate screening. Given his recent report of two tick bites, I explained the plan to order Lyme and tick testing to rule out an infection, even though his joint aches could be due to other causes like aging or his known elevated ferritin. Patient Instructions - Continue taking your Wegovy medication as prescribed for weight loss. - Please go to the laboratory to have blood tests done. - These tests will check your general health, screen for prostate health (PSA test), and check for any illness from the recent tick bites. [facility] Medical History (Reviewed 01/17/25 @ 15:47 by Jeferson Vivar [facility]) COVID-19 vaccine administered GERD (gastroesophageal reflux disease) Sleep apnea Tubular adenoma of colon HTN (hypertension), benign Surgical History (Reviewed 01/17/25 @ 15:47 by Jeferson Vivar [facility]) History of esophagogastroduodenoscopy (EGD) Hx of varicose vein ligation and stripping Hx of tonsillectomy (~2001) Hx of colonoscopy Family History (Reviewed 01/17/25 @ 15:47 by Jeferson Vivar [facility]) Mother Stroke, Onset Age: 74 Maternal Grandfather Colon cancer Father HTN (hypertension) Hypercholesteremia Social History Housing: House Alcohol intake: current Alcohol intake frequency: holidays/special occasions only Alcohol type: beer Patient Tobacco Use Status: Never used Tobacco e-Cigarette/Vaping Use: Never Used Second Hand Smoke Exposure: No service: No Current occupational status: employed Current occupation: [employer] Current occupational exposures/hazards: No Cognitive needs: No Hearing needs: No Vision needs: No Questionnaire Thrive Questionnaire Date Thrive assessed: 01/17/25 I am a: Patient What is your living situation today?: I have a steady place to live Within the past 12 months, did the food you bought not last and you didn't have the money to get more?: Never true Within the past 12 months, did you worry whether your food would run out before you got money to buy more?: Never true Do you have trouble paying for medicines?: No Do you have trouble getting transportation to medical appointments?: No Do you have trouble paying your heating and electricity bill?: No Do you have trouble taking care of your child, family member or friend?: No Do you have trouble with day-to-day activities such as bathing, preparing meals, shopping, managing finances, etc.?: No Are you currently unemployed and looking for a job?: No Are you interested in more education?: No Please select the resources that you would like help with: None Currently or been in a relationship where the following occur: No concerns reported THRIVE Score: 0 MELITA-7 AMB Questionnaire MELITA-7 Date MELITA - 7 assessed: 01/17/25 Source: Developed by Drs. Zachary Brand, Sarah Murray, Negrito Skinner and colleagues, with an educational nicci from [employer]. Physical exam (Primary Care) Tobacco/Smoking Status: Tobacco use Status Tobacco use date assessed 01/17/25 07/03/25 08:07 Patient Tobacco Use Status Never used Tobacco 07/03/25 08:07 Tobacco use type 03/20/25 14:21 e-Cigarette/Vaping Use Never Used 07/03/25 08:07 Thrive Assessment: Date of Thrive Assessment Date Thrive assessed 01/17/25 07/03/25 08:07 Currently or been in a relationship where the following occur: No concerns reported Telehealth Telehealth Telehealth Platform: [facility] Location of provider rendering services: practice address Location of patient: address on file Patient Identification confirmed using: Name, : Yes Telehealth method: video Patient verbally consented to treatment: Yes Patient verbally consented to billing insurance company: Yes Patient informed of any privacy concerns related to visit: Yes Minutes spent on Phone/Video with Pt.: 15 Coding Level of Care Code Tele Est Pt Level 3 (89883) Diagnoses Morbid obesity E66.01 Elevated ferritin R79.89 Tick bite W57.XXXA Assessment & Plan Assessment & Plan (1) Morbid obesity: Code(s): E66.01 - Morbid (severe) obesity due to excess calories Category: Medical (2) Elevated ferritin: Code(s): R79.89 - Other specified abnormal findings of blood chemistry Category: Medical (3) Tick bite: Code(s): W57.XXXA - Bitten or stung by nonvenomous insect and other nonvenomous arthropods, initial encounter Category: Medical Plan . Orders: Orders Lipid Panel Today E66.01 - Morbid (severe) obesity due to excess calories, G47.33 - Obstructive sleep apnea (adult) (pediatric) Lyme IgG/IgM w/reflex to WB Today W57.XXXA - Bitten or stung by nonvenomous insect and other nonvenomous arthropods, initial encounter Tick-borne Disease Molecular Today W57.XXXA - Bitten or stung by nonvenomous insect and other nonvenomous arthropods, initial encounter Complete Blood Count Auto Diff Today E66.01 - Morbid (severe) obesity due to excess calories, G47.33 - Obstructive sleep apnea (adult) (pediatric) Comprehensive [place]. Panel Fast Today E66.01 - Morbid (severe) obesity due to excess calories, G47.33 - Obstructive sleep apnea (adult) (pediatric) TSH reflex Free T4 Today E66.01 - Morbid (severe) obesity due to excess calories, G47.33 - Obstructive sleep apnea (adult) (pediatric) UA CC w/rflx Micro + Cult Today E66.01 - Morbid (severe) obesity due to excess calories, G47.33 - Obstructive sleep apnea (adult) (pediatric) Prostate Specific Antigen Scr Today Z12.5 - Encounter for screening for malignant neoplasm of prostate Medications: Changed From semaglutide (weight loss) (Wegovy) 2.4 mg subcut DIRECTED To semaglutide (weight loss) (Wegovy) 2.4 mg (0.75 mL) subcut QWEEK 3 mL 0RF Refilled semaglutide (weight loss) (Wegovy) 2.4 mg (0.75 mL) subcut QWEEK 9 mL 0RF
--- OUTSIDE RECORDS SUMMARY | 2025-07-03 15:07 | XMS_ITS | Patient Health Record ---
Author Organization [facility] Address [address] [place] [address] Care Team Providers Care Fleet Coordinator Name Role Phone RESHMA CHING Unavailable [phone] Allergies Allergen (clinical drug ingredient) Drug/Non Drug Allergy documented on EMR Reaction Allergy Type Onset Date Status sulfamethoxazole / trimethoprim Bactrim rash Drug Allergy Active Reason For Referral No Information Medications Medication SIG (Take, Route, Frequency, Duration) Notes Start Date End Date Status Flonase 50 MCG/ACT Suspension 1 spray in each nostril Nasally Once a day; Duration: 30 day(s) Active PriLOSEC OTC 20 MG Tablet Delayed Release 1 tablet Orally Once a day; Duration: 30 day(s) Active Contrave 8-90 MG Tablet Extended Release 12 Hour Take two tablets by mouth twice a day Active Immunizations Vaccine Route Administration Date Status Comme nts Moderna Covid-19 Vaccine IM Intramuscular 10/14/2020 Admin istered Social History Tobacco Use: Social History Observation Description Date Details (start date - stop date) Never Smoker NA - NA Social History Tobacco Use: Social Info Question Answer Notes Tobacco Use/Smoking Are you a nonsmoker Section Notes: does [...] Status W/U Status Risk Notes Problem Hypothyroidism (92019672) Hypothyroidism, unspecified (E03.9) Active confirmed Problem Obesity (825171577) Other obesity (E66.8) Active confirmed Problem Gastro-esophageal reflux disease with esophagitis (204640029) Gastro-esophage al reflux disease with esophagitis (K21.0) Active confirmed Problem Body mass index 35.00 to 39.99 (229067488927850) Body mass index (BMI) 36.0-36.9, adult (Z68.36) Active confirmed Problem Body mass index 35.00 to 39.99 (538744139494411) Body mass index (BMI) 37.0-37.9, adult (Z68.37) Active confirmed Problem Body mass index 35.00 to 39.99 (998867493441068) Body mass index (BMI) 38.0-38.9, adult (Z68.38) Active confirmed Problem Body mass index 40+ - severely obese (058316993) Body mass index (BMI) 40.0-44.9, adult (Z68.41) Active confirmed Problem Morbid obesity (213181419) Morbid obesity (E66.01) Active confirmed Plan Of Treatment No Information Insurance Providers Payer Name Payer Address Payer Phone Subscriber Number Group Number Insured Name Patient Relationship to Insured Coverage Start Date Coverage End Date Amanda [address] [place] [address] [id number] KARLEY SU Self - patient is the insured 9 Medications Administered Medication Instructions Date of Administration D[facility] Notes [facility] lot # [id number] Medical (General) History Surgical History Surgery Date(Month/Year) tonsillectomy varicose vein stripping
== END 2025-07-03 08:35 | disposition home or self-care (01) ==
LOC: HO.HMCC 07:39
PROVIDERS: PCP Nurse Practitioner Family; Visit Provider Nurse Practitioner Family
DX: R79.89 Other specified abnormal findings of blood chemistry (principal); E66.01 Morbid (severe) obesity due to excess calories; W57.XXXA Bitten or stung by nonvenomous insect and other nonvenomous arthropods, initial encounter

== ENCOUNTER 2025-08-01 10:34 | Outpatient (REF) | payer OTHER, SELFPAY ==
--- NOTE | ~2025-08-01 | US_ITS ---
EXAMINATION: US ABDOMEN COMPLETE WITH LIVER ELASTOGRAPHY HISTORY: High ferritin, RUQ pain; smudge cells blood smear TECHNIQUE: Real-time grayscale ultrasound imaging of the abdomen was performed and images were reviewed. COMPARISON: There are no prior studies available for comparison. FINDINGS: Liver: The right lobe of the liver measures 14.3 cm in size. The left lobe of the liver measures 13.7 cm in size. The liver demonstrates increased echotexture, consistent with steatosis. No focal mass or intrahepatic biliary ductal dilatation is identified. There is normal hepatopedal flow in the portal vein. Ultrasound elastography of the liver was performed with 10 separate measurements of the liver parenchyma with the patient in the supine position. Measurements were obtained approximately 2 cm below Mt's capsule and perpendicular to the capsule. The median shear wave velocity is 1.55 m/s. The interquartile range/median (IQR/median) is 0.06. Gallbladder and biliary tree: The gallbladder is unremarkable, without evidence of calculi, wall thickening, or pericholecystic fluid. There is no sonographic Ngo sign. The common bile duct is normal in caliber measuring 5 mm in diameter. Kidneys: The right kidney measures 12.9 cm in length. The left kidney measures 12.1 cm in length. The kidneys are unremarkable, without evidence of masses, hydronephrosis, or calculi. Pancreas: There is limited visualization of the pancreas. Spleen: The spleen is normal in size and contour, measuring 12.1 cm in length. Abdominal aorta and inferior vena cava: The visualized portions of the abdominal aorta and inferior vena cava are normal in caliber. There is no free fluid in the abdomen. US/US abdomen comp w elastography IMPRESSION: Hepatic steatosis. Enlargement of the left lobe of the liver. The median shear wave velocity in the liver is 1.55 m/s, corresponding to a median liver stiffness of 7.49 kPa. The IQR/median value is 0.06. This is indicative of a quality data set. Findings are indicative of a low elastography value which rules out advanced chronic liver disease in asymptomatic patients. REFERENCE: Society of Radiologists in Ultrasound Liver Stiffness Thresholds (2020): LIVER STIFFNESS THRESHOLDS: *Shear wave velocity less than 1.3 m/s (Liver Stiffness equal or less than 5 kPa): High probability of being normal. *Shear wave velocity less than 1.7 m/s (Liver Stiffness less than 9 kPa): In the absence of other known clinical signs, rules out compensated advanced chronic liver disease. *Shear wave velocity between 1.7-2.1 m/s (Liver Stiffness 9-13 kPa): Suggestive of compensated advanced chronic liver disease but need further test for confirmation. *Shear wave velocity between 2.1-2.4 m/s (Liver Stiffness 13-17 kPa): Rules in compensated advanced chronic liver disease. *Shear wave velocity greater than 2.4 m/s (Liver Stiffness over 17 kPa): Suggestive of clinically significant portal hypertension. QUALITY OF DATA SET: *IQR/Median value equal or less than 0.15 implies a quality data set. *IQR/Median value over 0.15 implies a poor quality data set. SIGNIFICANT CHANGE FROM PRIOR EXAM: Significant change if liver stiffness measurement is 10% or greater from prior exam. OTHER CONSIDERATIONS: The stage of liver fibrosis may be overestimated in the setting of acute hepatitis, liver inflammation, elevated liver function tests, hepatic vascular congestion, obstructive cholestasis, non-fasting state, and infiltrative diseases such as amyloidosis and lymphoma. In some patients with NAFLD, the liver stiffness thresholds for compensated advanced chronic liver disease may be lower. In causes other than viral hepatitis and NAFLD, liver stiffness thresholds are not well established. Electronically signed by: Zachary Marcial MD 08/01/2025 12:06 PM [facility]
--- OUTSIDE RECORDS SUMMARY | 2025-08-01 13:18 | XMS_ITS | Patient Health Record ---
Author Organization [facility] Address [address] [place] [address] Care Team Providers Care Us Administrative Law Judge Name Role Phone RESHMA CHING Unavailable [phone] Allergies Allergen (clinical drug ingredient) Drug/Non Drug [...] Status W/U Status Risk Notes Problem Hypothyroidism (61816827) Hypothyroidism, unspecified (E03.9) Active confirmed Problem Obesity (672137327) Other obesity (E66.8) Active confirmed Problem Gastro-esophageal reflux disease with esophagitis (982128192) Gastro-esophage al reflux disease with esophagitis (K21.0) Active confirmed Problem Body mass index 35.00 to 39.99 (589283462126989) Body mass index (BMI) 36.0-36.9, adult (Z68.36) Active confirmed Problem Body mass index 35.00 to 39.99 (810092629835166) Body mass index (BMI) 37.0-37.9, adult (Z68.37) Active confirmed Problem Body mass index 35.00 to 39.99 (278084428585635) Body mass index (BMI) 38.0-38.9, adult (Z68.38) Active confirmed Problem Body mass index 40+ - severely obese (266889324) Body mass index (BMI) 40.0-44.9, adult (Z68.41) Active confirmed Problem Morbid obesity (232749243) Morbid obesity (E66.01) Active confirmed Plan Of Treatment No Information Insurance Providers Payer Name Payer Address Payer Phone Subscriber Number Group Number Insured Name Patient Relationship to Insured Coverage Start Date Coverage End Date Amanda [address] [place] [address] [id number] KARLEY SU Self - patient is the insured 9 Medications Administered Medication Instructions Date of Administration [facility] lot # [id number] Medical (General) History Surgical History Surgery Date(Month/Year) tonsillectomy varicose vein stripping
== END 2025-08-01 10:35 | disposition home or self-care (01) ==
LOC: HO.US 10:34
PROVIDERS: PCP Nurse Practitioner Family; Visit Provider Nurse Practitioner Family
DX: R10.11 Right upper quadrant pain (principal); R79.9 Abnormal finding of blood chemistry, unspecified; R79.89 Other specified abnormal findings of blood chemistry
CPT/HCPCS: 76700; 76981

== ENCOUNTER → 2025-08-01 10:37 | Outpatient (BNV) | payer OTHER, SELFPAY | PROVIDERS: PCP Nurse Practitioner Family; Visit Provider Radiology Diagnostic Radiology | DX: K76.0 Fatty (change of) liver, not elsewhere classified (principal); R16.0 Hepatomegaly, not elsewhere classified | CPT/HCPCS: 76700 ==